=== PATIENT | female | born 1960 | race African-American/Black ===

== ENCOUNTER 2017-01-07 11:17 | Inpatient (IN) | payer MEDICAID ==
[~2017-01-07] VITALS: Ht 162.6 cm; Wt 100.4 kg
[2017-01-07] VITALS (9 sets, daily range): BP systolic 119–147; BP diastolic 69–93
[2017-01-07] MEDS ORDERED: fentaNYL PF VIAL 100 MCG/2 ML VIAL IV PRN ×3 (12:00→13:15)
[2017-01-07 12:01] LABS: NEG OBC FOB NEG; POS OBC FOB POS
--- NOTE | 2017-01-07 12:13 | EKG ---
[facility] [address] [place] [address] Test Date: 2017-01-07 Test Time: 11:53:28 Pat Name: DANIA UMANA Department: Room: Gender: F Teacher'S Assistant: : 1960 Requested By: CONCHA WOLFE Order Number: [id number] Reading MD: Measurements Intervals [place] Rate: 68 P: 29 MS: 156 QRS: -2 QRSD: 66 T: 62 QT: 400 QTc: 430 Interpretive Statements SINUS RHYTHM LEFT ATRIAL ABNORMALITY LEFTWARD AXIS LOW LIMB LEAD VOLTAGE NON SPECIFIC T ABNORMALITY RI6.01 Unconfirmed report No previous ECG available for comparison
[2017-01-07 12:22] LABS: BASO % 1 % (0-3); EOS % 2 % (0-3); HEMATOCRIT 25.8 % (36.0-47.0); HEMOGLOBIN 8.7 g/dL (12.0-15.5); LYMPH # 1.4 x10^3/uL (1.0-4.8); LYMPH % 26 % (24-48); MEAN CORPUSCULAR HEMOGLOBIN 34 pg (25-35); MEAN CORPUSCULAR HGB CONC 34 g/dL (31-37); MEAN CORPUSCULAR VOLUME 101 fL (79-100); MONO % 8 % (0-9); NEUT % 64 % (31-73); PLATELET COUNT 226 x10^3/uL (140-400); RED BLOOD COUNT 2.56 x10^6/uL (3.50-5.40); RED CELL DISTRIBUTION WIDTH 12.8 % (11.5-14.5); WHITE BLOOD COUNT 5.3 x10^3/uL (4.0-11.0)
[2017-01-07 12:31] LABS: INR 1.2 (0.8-1.1); PROTHROMBIN TIME PATIENT 14.5 SEC (11.7-14.0)
[2017-01-07 12:35] LABS: CALCIUM 8.1 mg/dL (8.5-10.1); GFR 69.4; POTASSIUM 4.3 mmol/L (3.5-5.1)
[2017-01-07] MEDS ORDERED: ACET325T9 PO (12:40)
[2017-01-07] MEDS ORDERED: POLY17PO3 PO (12:40)
[2017-01-07] MEDS ORDERED: LISI10TA2 PO (12:42)
[2017-01-07] MEDS ORDERED: SOLI10TA2 PO (12:43)
[2017-01-07] MEDS ORDERED: HYDR25TA9 PO (12:43)
[2017-01-07] MEDS ORDERED: POLY17PO29 PO (12:44)
[2017-01-07] MEDS ORDERED: GABA-585 PO (12:44)
[2017-01-07] MEDS ORDERED: PROAIR HFA8.5 GM INH (12:44)
[2017-01-07] MEDS ORDERED: PANT40TA3 PO (12:44)
--- NOTE | 2017-01-07 12:45 | PDOC2 ---
GI CONSULT Reason For Consult: Melena HPI: HPI: 56 y/o female seen in ER after d/w Dr. Al. Reports two episodes of melena since 8:30 this morning. Associated w/ mild epigastric discomfort. No CP, SOA , or dizziness. 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 H/o GERD controlled w/ Protonix QD. No NSAID use. Denies h/o anemia; says supposed to take iron but doesn't. No h/o GI bleed. Denies n/v, diarrhea, and constipation. Doesn't recall previous EGD or colonoscopy. No liver, gallbladder, or pancreas history. Started on PPI drip. Labs still being processed; Hgb is 8.1, heme positive. Last ate at 2:30 this a.m. PMH: PMH: HTN, urinary incontinence, partial hysterectomy, bilateral knee arthroscopies, bilateral CTR FH: Family History: No pertinent hx (denies GI cancers) Social History: Smoke: No ALCOHOL: rare Drugs: None ROS: GEN: Denies fevers, chills, sweats HEENT: Denies blurred vision, sore throat CV: Denies chest pain RESP: Denies shortness of air, cough GI: Per HPI : Denies hematuria, dysuria ENDO: Denies weight changes NEURO: Denies confusion, dizziness MSK: knee pain SKIN: Denies jaundice, pruritus Vitals: Vitals: Vital Signs Date Time Temp Pulse Resp B/P (MAP) Pulse Ox O2 Delivery O2 Flow Rate FiO2 01/07/17 11:45 98.8 69 18 124/84 (97) 99 Room Air 98.8 Labs: Labs: Laboratory Tests Test 01/07/17 11:46 01/07/17 12:10 Stool Occult Blood Positive (NEG) White Blood Count 5.3 x10^3/uL (4.0-11.0) Red Blood Count 2.56 x10^6/uL (3.50-5.40) Hemoglobin 8.7 g/dL (12.0-15.5) Hematocrit 25.8 % (36.0-47.0) Mean Corpuscular Volume 101 fL (79-100) Mean Corpuscular Hemoglobin 34 pg (25-35) Mean Corpuscular Hemoglobin Concent 34 g/dL (31-37) Red Cell Distribution Width 12.8 % (11.5-14.5) Platelet Count 226 x10^3/uL (140-400) Neutrophils (%) (Auto) 64 % (31-73) Lymphocytes (%) (Auto) 26 % (24-48) Monocytes (%) (Auto) 8 % (0-9) Eosinophils (%) (Auto) 2 % (0-3) Basophils (%) (Auto) 1 % (0-3) Neutrophils # (Auto) 3.4 x10^3uL (1.8-7.7) Lymphocytes # (Auto) 1.4 x10^3/uL (1.0-4.8) Monocytes # (Auto) 0.4 x10^3/uL (0.0-1.1) Eosinophils # (Auto) 0.1 x10^3/uL (0.0-0.7) Basophils # (Auto) 0.0 x10^3/uL (0.0-0.2) Medications: Please see EMR. Imaging: Imaging: - PE: GEN: NAD HEENT: Atraumatic, PERRL LUNGS: CTAB HEART: RRR ABD: NABS, S/ND, epigastric discomfort EXTREMITY: No edema SKIN: No rashes, no jaundice NEURO/PSYCH: A & O 3 A/P: A/P: Melena -two episodes this morning Macrocytic anemia H/o Isrrael-en-Y -2010 in [place], [place] H/o GERD -controlled w/ Protonix CRC screen -no previous colonoscopy -- Agree w/ PPI drip, NPO. Await pending labs. Will review w/ Dr. Mireles re: EGD. DHARA STAFFORD Jan 07, 2017 12:45
[2017-01-07 12:48] LABS: ALBUMIN 3.1 g/dL (3.4-5.0); TOTAL BILIRUBIN 0.3 mg/dL (0.2-1.0); TOTAL PROTEIN 6.2 g/dL (6.4-8.2)
[2017-01-07] MEDS ORDERED: ONDANSETRON PF 4 MG/2 ML VIAL. IV ONE (13:00)
[2017-01-07] MEDS ORDERED: PANTOPRAZOLE IV PUSH 40 MG VIAL. IVP ONE (13:00)
[2017-01-07] MEDS ORDERED: IV NORMAL SALINE 1000ML BAG 1,000 ML IV ONE (13:00)
[2017-01-07] MEDS: PANTOPRAZOLE SODIUM IV 80 MG in IV NORMAL SALINE 100ML 100 ML IV SCH ×2 (13:04→21:00)
[2017-01-07 13:06] LABS: BILIRUBIN,URINE NEGATIVE (NEG); GLUCOSE,URINE NEGATIVE (NEG); NITRITE,URINE NEGATIVE (NEG); PROTEIN,URINE NEGATIVE (NEG-TRACE)
[2017-01-07] MEDS ORDERED: IV RINGERS,LACTATED 1000ML 1,000 ML IV SCH (13:09)
[2017-01-07] MEDS ORDERED: ONDANSETRON PF 4 MG/2 ML VIAL. IV PRN (13:15)
[2017-01-07] MEDS ORDERED: LIDOCAINE 1% PF 2 ML VIAL. ID PRN (13:15)
[2017-01-07] MEDS ORDERED: PROCHLORPERAZINE 10 MG/2 ML VIAL. IV PRN (13:15)
[2017-01-07] MEDS ORDERED: MORPHINE SULFATE 2 MG/ML DISP.SYRIN. IV PRN (13:15)
[2017-01-07] MEDS ORDERED: HYDROmorphone 2 MG/ML VIAL IV PRN (13:15)
--- NOTE | 2017-01-07 13:15 | RAD ---
Abdominal series including frontal chest radiograph and 2 views of the abdomen 01/07/2017 Indication: Bloody stools x1. Comparison study: None Findings: No pneumothorax or effusion is identified. No focal pulmonary infiltrate is seen. Heart size is normal. Bony thorax is unremarkable. No pneumoperitoneum is identified. The surgical clips are noted projecting over the abdomen. Mildly dilated loop of appears to be small bowel seen in the left mid abdomen. This is nonspecific but could represent a focal ileus in the appropriate setting. Correlate with evidence of pancreatitis or other such process. No acute osseous changes are identified. Impression: Nonspecific mildly dilated loops of small bowel in left mid abdomen. A focal ileus is not excluded. The overall bowel gas pattern is felt to be nonobstructive.
[2017-01-07 13:32] LABS: SQUAMOUS EPITHELIAL CELL,UR FEW /LPF
[2017-01-07 13:33] LABS: BACTERIA,URINE FEW /HPF (0-FEW); RBC,URINE 0 /HPF (0-2); WBC,URINE OCC /HPF (0-4)
[2017-01-07] MEDS ORDERED: PROPOFOL 40 ML IV ONE (14:16)
[2017-01-07] MEDS ORDERED: LIDOCAINE 2% PF Vial for OR 5 ML VIAL. ONE (14:16)
[2017-01-07] MEDS ORDERED: EPINEPHrine 1 MG/ML VIAL SQ ONE (14:41)
--- NOTE | 2017-01-07 14:49 | PDOC4 ---
Operative Note Operative Note EGD with bx/control of bleeding Meds Propofol per anesthesia Pre-op dx acute blood loss anemia/melena/hx gastric bypass Post-op dx s/p gastric bypass with intestinal anastomotic ulcer s/p cautery/ injection epi 6 cc Plan Npo for 48 hours/monitored bed PPI therapy serial cbcs with transfusional support to maintain Hg .8 KELSEY NOWAK MD Jan 07, 2017 14:49
[2017-01-07] MEDS ORDERED: EPINEPHrine SYRINGE 1 MG/10 ML SYRINGE ONE (14:55)
[2017-01-07] MEDS ORDERED: ALBUTEROL SULFATE 2.5 MG/3 ML NEBU. NEB PRN (16:30)
[2017-01-07] MEDS ORDERED: NON FORMULARY ITEM (Albuterol Sulfate (Proair Hfa Inhaler) 1 PUFF) INH PRN (16:30)
[2017-01-07] MEDS ORDERED: INFLUENZA VAX SCREEN BY RX. MC ONE (16:45)
[2017-01-07] MEDS ORDERED: FLU VACC QS2017-18 (36MOS+)/PF 0.5 ML SYRINGE. VAX IM ONE (16:45)
[2017-01-07] MEDS ORDERED: hydrALAZINE 20 MG/ML VIAL. IVP PRN (17:00)
--- NOTE | 2017-01-07 17:26 | HP ---
ADMIT DATE: 01/07/2017 CHIEF COMPLAINT: Melena. HISTORY OF PRESENT ILLNESS: The patient is a 56-year-old -[place] woman with past medical history of gastric bypass in 2010 for weight loss purposes. She presented to the Emergency Room with 2 episodes of large melanotic stools this morning. She relates that she never had any issues like this before, was not quite sure what it is but clearly found it to be abnormal and therefore presented. On further questioning, she relates that she had some mild epigastric discomfort, but no nausea, vomiting or true abdominal pain. She does have a history of GERD, which is controlled by Protonix daily. She denies any diarrhea or constipation. Denies any other GI issues. She was emergently taken to the endoscopy lab and a bleeding ulcer was found at the anastomotic line of her bypass. This was cauterized and injected with epinephrine with appearance of cessation of bleeding. She is now admitted to the ICU for further monitoring. PAST MEDICAL HISTORY: Hypertension, urinary incontinence. PAST SURGICAL HISTORY: She is status post partial hysterectomy as well as knee arthroscopies bilaterally. FAMILY HISTORY: Positive for hypertension. Sister with Alzheimer's. SOCIAL HISTORY: Currently is taking care of her sister. Drinks alcohol only rarely. Denies any other drugs. ALLERGIES: No known drug allergies. MEDICATIONS: MAR reconciled with home medications. REVIEW OF SYSTEMS: The patient currently feels fine. She did receive Zofran post-procedure for nausea with good results. Denies any pain or symptoms in rest of organ system review. PHYSICAL EXAMINATION: VITAL SIGNS: From today show a blood pressure of 130/91, heart rate of 69, respiratory rate at 18. She is afebrile. GENERAL: This is a 56-year-old obese -[place]ron[place] woman, alert and oriented, in no acute distress. HEENT: Shows no scleral icterus. Oral mucosa is pink and moist. NECK: Supple, without any lymphadenopathy. LUNGS: Clear. HEART: Regular rate and rhythm. ABDOMEN: Positive bowel sounds, soft, nontender. EXTREMITIES: Show no edema. LABORATORY DATA: CBC with a WBC of 5.3, hemoglobin 8.7, MCV of 101, platelets of 226. Chemistries with a BUN and creatinine of 25 and 1, normal electrolytes. LFTs within normal. Albumin at 3.1. Coags with PT of 14.5 and APTT of 31. Urine essentially benign. IMAGING STUDIES: With an acute abdominal series showing nonspecific mildly dilated loops of small bowel in the left mid abdomen. Overall, bowel gas pattern is felt to be nonobstructive. ASSESSMENT AND PLAN: The patient is a 56-year-old -[place]ron[place] woman presenting with melena, found to be secondary to an anastomotic ulcer at her gastric bypass. This now has been taken care of via EGD. She is admitted to the ICU for close monitoring. We will obtain H and H q. 6 hours. She will be transfused for hemoglobin of less than 8. Her anemia interestingly is macrocytic. I suspect that she is probably both B12 and iron deficient. We will obtain labs. She may require parenteral replacement. We will continue to monitor all her other labs. Suspect that BUN is mildly elevated secondary to protein load secondary to bleed. However, cannot exclude dehydration. She will continue on gentle IV hydration for the time being as she is n.p.o. PPI will be continued IV. For hypertension, she is typically on several oral medications. We will switch to hydralazine plus minus labetalol p.r.n. IV. BETTE YAP MD DR: UR/nts JOB#: [id number] / [id number] MANI
[2017-01-07 17:36] LABS: % SAT IRON 37 % (15-34); IRON,SERUM 91 ug/dL (50-170)
[2017-01-07 18:04] LABS: HEMATOCRIT 23.9 % (36.0-47.0); RED BLOOD COUNT 2.34 x10^6/uL (3.50-5.40); RED CELL DISTRIBUTION WIDTH 12.7 % (11.5-14.5); WHITE BLOOD COUNT 7.7 x10^3/uL (4.0-11.0)
[2017-01-07] MEDS: IV NORMAL SALINE 1000ML BAG 1,000 ML IV SCH (18:20)
--- NOTE | 2017-01-07 18:40 | ED.ADGEN ---
Past Medical History Past Medical History: GERD, Hypertension, Other Additional Past Medical Histor: urinary incontinence Past Surgical History: Hysterectomy, Tubal ligation, Other Additional Past Surgical Histo: gastric bypass, carpal tunnel, knee scope Alcohol Use: Occasionally Drug Use: None Adult General Chief Complaint Chief Complaint: BLOODY STOOL HPI HPI Patient is a 56 year old woman, history of gastric bypass surgery in 2010, history of hypertension, GERD, who presents emergency department with a complaint of dark tarry stools 2 episodes. Patient states that she began experiencing upper abdominal cramping and aching sensation, and then experienced an episode of a dark tarry red stool around 1:30 this morning, and a second episode around 7 AM. Patient states she's been came to the ED for evaluation. She denies any history of GI bleeding, states she is not previously received an EGD or a colonoscopy. No history of constipation or diarrhea, no previous GI symptoms, denies any fevers, any chills, any weakness, numbness, tingling, chest pain, shortness breath, lightheadedness dizziness or other complaints. Patient states she last ate around 10 PM last night. Denies any injuries, any swelling extremities, any easy bruising or bleeding from other locations. No urinary complaints. No recent medication changes, no recent travel or surgery. Review of Systems Review of Systems Constitutional: Denies fever or chills. [] Eyes: Denies change in visual acuity. [] HENT: Denies nasal congestion or sore throat. [] Respiratory: Denies cough or shortness of breath. [] Cardiovascular: Denies chest pain or edema. [] GI: Cramping and aching epigastric abdominal pain, no nausea, vomiting, positive for dark tarry stools 2 episodes this morning, no diarrhea. : Denies dysuria. [] Musculoskeletal: Denies back pain or joint pain. [] Integument: Denies rash. [] Neurologic: Denies headache, focal weakness or sensory changes. [] Endocrine: Denies polyuria or polydipsia. [] Lymphatic: Denies swollen glands. [] Psychiatric: Denies depression or anxiety. [] Current Medications Current Medications Current Medications Medications (Trade) Dose Ordered Sig/Philip Start Time Stop Time Status Last Admin Dose Admin Fentanyl Citrate (Fentanyl 2ml Vial) 50 mcg PRN Q5MIN PRN 01/07/17 13:15 01/07/17 17:00 DC Hydromorphone HCl (Dilaudid) 0.5 mg PRN Q10MIN PRN 01/07/17 13:15 01/07/17 17:00 DC Lidocaine HCl (Xylocaine-Mpf 1% Vial) 2 ml PRN 1X PRN 01/07/17 13:15 01/07/17 17:00 DC Morphine Sulfate 1 mg PRN Q10MIN PRN 01/07/17 13:15 01/07/17 17:00 DC Ondansetron HCl (Zofran) 4 mg PRN Q6HRS PRN 01/07/17 13:15 01/08/17 13:14 01/07/17 15:57 4 MG Pantoprazole Sodium (Protonix Vial) 40 mg 1X ONCE 01/07/17 13:00 01/07/17 13:01 DC 01/07/17 13:03 40 MG Prochlorperazine Edisylate (Compazine) 5 mg PACU PRN PRN 01/07/17 13:15 01/08/17 13:14 Ringer's Solution 1,000 ml @ 0 mls/hr Q0M 01/07/17 13:09 01/08/17 01:08 Sodium Chloride 1,000 ml @ 1,000 mls/hr 1X ONCE 01/07/17 13:00 01/07/17 13:59 DC 01/07/17 13:04 1,000 MLS/HR Physical Exam Physical Exam Constitutional: Well developed, well nourished, no acute distress, non-toxic appearance. [] HENT: Normocephalic, atraumatic, bilateral external ears normal, oropharynx moist, no oral exudates, nose normal. [] Eyes: PERRLA, EOMI, conjunctiva pale, no discharge. [] Neck: Normal range of motion, no tenderness, supple, no stridor. [] Cardiovascular:Heart rate regular rhythm, no murmur, S1, S2, no rubs or gallops. [] Lungs & Thorax: Bilateral breath sounds clear to auscultation, no wheezing, rhonchi, rales. No chest wall crepitus or tenderness. Slightly pale in appearance. [] Abdomen: Bowel sounds normal, soft, mild tenderness palpation in the epigastric region, no rebound, rigidity, no guarding, no masses, no pulsatile masses. [] Skin: Warm, dry, no erythema, no rash. [] Back: No tenderness, no CVA tenderness. [] Extremities: No tenderness, no cyanosis, no clubbing, ROM intact, no edema. Negative Homans sign.[] Neurologic: Alert and oriented X 3, normal motor function, normal sensory function, no focal deficits noted. [] Psychologic: Affect normal, judgement normal, mood normal. [] Rectal examination: Patient with liquid melanotic school noted in vault. No tenderness, no masses. Current Patient Data Vital Signs Vital Signs Date Time Temp Pulse Resp B/P (MAP) Pulse Ox O2 Delivery O2 Flow Rate FiO2 01/07/17 13:20 60 18 115/74 (88) 99 Room Air 01/07/17 11:45 98.8 98.8 Lab Values Laboratory Tests Test 01/07/17 11:46 01/07/17 12:10 01/07/17 12:55 Stool Occult Blood Positive (NEG) White Blood Count 5.3 x10^3/uL (4.0-11.0) Red Blood Count 2.56 x10^6/uL (3.50-5.40) L Hemoglobin 8.7 g/dL (12.0-15.5) L Hematocrit 25.8 % (36.0-47.0) L Mean Corpuscular Volume 101 fL (79-100) H Mean Corpuscular Hemoglobin 34 pg (25-35) Mean Corpuscular Hemoglobin Concent 34 g/dL (31-37) Red Cell Distribution Width 12.8 % (11.5-14.5) Platelet Count 226 x10^3/uL (140-400) Neutrophils (%) (Auto) 64 % (31-73) Lymphocytes (%) (Auto) 26 % (24-48) Monocytes (%) (Auto) 8 % (0-9) Eosinophils (%) (Auto) 2 % (0-3) Basophils (%) (Auto) 1 % (0-3) Neutrophils # (Auto) 3.4 x10^3uL (1.8-7.7) Lymphocytes # (Auto) 1.4 x10^3/uL (1.0-4.8) Monocytes # (Auto) 0.4 x10^3/uL (0.0-1.1) Eosinophils # (Auto) 0.1 x10^3/uL (0.0-0.7) Basophils # (Auto) 0.0 x10^3/uL (0.0-0.2) Reticulocyte Count (auto) 1.4 % (0.5-2.5) Prothrombin Time 14.5 SEC (11.7-14.0) H Prothrombin Time INR 1.2 (0.8-1.1) H PTT 31 SEC (24-38) Sodium Level 142 mmol/L (136-145) Potassium Level 4.3 mmol/L (3.5-5.1) Chloride Level 107 mmol/L (98-107) Carbon Dioxide Level 28 mmol/L (21-32) Anion Gap 7 (6-14) Blood Urea Nitrogen 25 mg/dL (7-20) H Creatinine 1.0 mg/dL (0.6-1.0) Estimated GFR (Cockcroft-Gault) 69.4 BUN/Creatinine Ratio 25 (6-20) H Glucose Level 85 mg/dL (70-99) Lactic Acid Level 0.5 mmol/L (0.4-2.0) Calcium Level 8.1 mg/dL (8.5-10.1) L Iron Level 91 ug/dL (50-170) Total Iron Binding Capacity 248 ug/dL (250-450) L Iron Saturation 37 % (15-34) H Ferritin 40 ng/mL (8-252) Total Bilirubin 0.3 mg/dL (0.2-1.0) Aspartate Amino Transferase (AST) 20 U/L (15-37) Alanine Aminotransferase (ALT) 27 U/L (14-59) Alkaline Phosphatase 49 U/L (46-116) Troponin I Quantitative < 0.017 ng/mL (0.000-0.055) Total Protein 6.2 g/dL (6.4-8.2) L Albumin 3.1 g/dL (3.4-5.0) L Albumin/Globulin Ratio 1.0 (1.0-1.7) Urine Collection Type Unknown Urine Color Yellow Urine Clarity Clear Urine pH 7.0 Urine Specific [place] 1.015 Urine Protein Negative mg/dL (NEG-TRACE) Urine Glucose (UA) Negative mg/dL (NEG) Urine Ketones (Stick) Negative mg/dL (NEG) Urine Blood Negative (NEG) Urine Nitrite Negative (NEG) Urine Bilirubin Negative (NEG) Urine Urobilinogen Dipstick 1.0 mg/dL (0.2 mg/dL) Urine Leukocyte Esterase Trace (NEG) Urine RBC 0 /HPF (0-2) Urine WBC Occ /HPF (0-4) Urine Squamous Epithelial Cells Few /LPF Urine Bacteria Few /HPF (0-FEW) Laboratory Tests 01/07/17 12:10 Laboratory Tests 01/07/17 12:10 EKG EKG EC: Sinus rhythm, heart rate 68 beats are minute, left axis deviation, QTC of 4:30, WI of 156, QRS of 66, mild baseline artifact, no ST elevations or depressions, T-wave flattening noted in the anterior septal leads, abnormal ECG , does not meet STEMI criteria. As interpreted by me. Radiology/Procedures Radiology/Procedures [][facility] [address] [place] [address] IMAGING REPORT Signed PATIENT: DANIA UMANA ACCOUNT: [id number] : 1960 LOCATION: ER AGE: 56 SEX: F EXAM STATUS: REG ER ORD. PHYSICIAN: CONCHA WOLFE DO REASON: abd pain PROCEDURE: ACUTE ABDOMEN SERIES Abdominal series including frontal chest radiograph and 2 views of the abdomen 01/07/2017 Indication: Bloody stools x1. Comparison study: None Findings: No pneumothorax or effusion is identified. No focal pulmonary infiltrate is seen. Heart size is normal. Bony thorax is unremarkable. No pneumoperitoneum is identified. The surgical clips are noted projecting over the abdomen. Mildly dilated loop of appears to be small bowel seen in the left mid abdomen. This is nonspecific but could represent a focal ileus in the appropriate setting. Correlate with evidence of pancreatitis or other such process. No acute osseous changes are identified. Impression: Nonspecific mildly dilated loops of small bowel in left mid abdomen. A focal ileus is not excluded. The overall bowel gas pattern is felt to be nonobstructive. DICTATED and SIGNED BY: SHAY MCKEON MD DATE: 01/07/17 [id number] CC: CONCHA WOLFE DO; NON,STAFF ~ Course & Med Decision Making Course & Med Decision Making Pertinent Labs and Imaging studies reviewed. (See chart for details) Patient with no further episodes of tarry stool in the ED, vital signs within normal limits, patient resting comfortably after receiving analgesia. I spoke with Dr. Mireles of GI, this time we'll hold off on additional imaging aside from acute abdominal series, proceed with IV Protonix bolus and drip, patient to receive emergent EGD, patient was evaluated in the ED by nurse practitioner Lori Vogt of GI, patient states that she is feeling better at this time, however hemoglobin noted to be 8.7, history of anemia, consistent with acute blood loss, based on patient's examination findings a concern for continued bleeding, along with elevated blood urea nitrogen of 25, consistent with upper GI bleed as stated, patient was consented for transfusion of 1 unit packed red cells at this time, with a unit of red cells on hold. Patient also received ceftriaxone due to concern for upper GI bleed. No history of liver abnormalities , LFTs within normal limits. Findings as above discussed with Dr. Moreira of internal medicine, patient accepted to her service as a full admission, at this time to the medical telemetry floor, as patient remains stable in the ED, awaiting transfer to the GI suite for EGD performed. Patient was transferred to the GI suite without issue for continued management with GI. Eboni Disclaimer Dragon Disclaimer This electronic medical record was generated, in whole or in part, using a voice recognition dictation system. Departure Impression: Primary Impression: UGI bleed Additional Impression: Anemia Disposition: ADMITTED INPATIENT Admitting Physician: Other Condition: STABLE Critical Care Time Critical care time was 25 minutes exclusive of procedures. Problem Qualifiers CONCHA WOLFE DO Jan 07, 2017 18:40
[2017-01-08] VITALS (18 sets, daily range): BP systolic 106–157; BP diastolic 60–90
[2017-01-08 01:17] LABS: HEMATOCRIT 23.1 % (36.0-47.0); HEMOGLOBIN 7.7 g/dL (12.0-15.5); RED BLOOD COUNT 2.27 x10^6/uL (3.50-5.40); RED CELL DISTRIBUTION WIDTH 12.5 % (11.5-14.5); WHITE BLOOD COUNT 5.7 x10^3/uL (4.0-11.0)
[2017-01-08 04:32] LABS: BASO % 1 % (0-3); EOS % 2 % (0-3); HEMATOCRIT 24.1 % (36.0-47.0); HEMOGLOBIN 8.1 g/dL (12.0-15.5); LYMPH # 1.9 x10^3/uL (1.0-4.8); LYMPH % 34 % (24-48); MEAN CORPUSCULAR HEMOGLOBIN 34 pg (25-35); MEAN CORPUSCULAR HGB CONC 34 g/dL (31-37); MEAN CORPUSCULAR VOLUME 99 fL (79-100); MONO % 8 % (0-9); NEUT % 56 % (31-73); PLATELET COUNT 187 x10^3/uL (140-400); RED BLOOD COUNT 2.42 x10^6/uL (3.50-5.40); WHITE BLOOD COUNT 5.7 x10^3/uL (4.0-11.0)
[2017-01-08 04:58] LABS: ALBUMIN 2.6 g/dL (3.4-5.0); ALBUMIN/GLOBULIN RATIO 0.9 (1.0-1.7); CALCIUM 8.3 mg/dL (8.5-10.1); CREATININE 0.8 mg/dL (0.6-1.0); GFR 89.8; POTASSIUM 3.8 mmol/L (3.5-5.1); TOTAL BILIRUBIN 0.5 mg/dL (0.2-1.0); TOTAL PROTEIN 5.6 g/dL (6.4-8.2)
[2017-01-08] MEDS: IV NORMAL SALINE 1000ML BAG 1,000 ML IV SCH ×3 (04:59→21:52)
[2017-01-08] MEDS: PANTOPRAZOLE SODIUM IV 80 MG in IV NORMAL SALINE 100ML 100 ML IV SCH ×2 (09:07→21:52)
--- NOTE | 2017-01-08 09:31 | PDOC ---
Subjective: Subjective: No recurrent bleeding, pain, or n/v. Objective: Objective: Received 1 unit pRBCs. D/w RN. Vital Signs: Vital Signs Date Time Temp Pulse Resp B/P (MAP) Pulse Ox O2 Delivery O2 Flow Rate FiO2 01/08/17 09:00 71 14 123/67 (85) 96 Room Air 01/08/17 08:00 98.0 98.0 01/07/17 14:52 2 Labs: Laboratory Tests Test 01/07/17 11:46 01/07/17 12:10 01/07/17 12:55 01/07/17 17:50 Stool Occult Blood Positive White Blood Count 5.3 x10^3/uL 7.7 x10^3/uL Red Blood Count 2.56 x10^6/uL 2.34 x10^6/uL Hemoglobin 8.7 g/dL 8.0 g/dL Hematocrit 25.8 % 23.9 % Mean Corpuscular Volume 101 fL 102 fL Mean Corpuscular Hemoglobin 34 pg 34 pg Mean Corpuscular Hemoglobin Concent 34 g/dL 33 g/dL Red Cell Distribution Width 12.8 % 12.7 % Platelet Count 226 x10^3/uL 197 x10^3/uL Neutrophils (%) (Auto) 64 % Lymphocytes (%) (Auto) 26 % Monocytes (%) (Auto) 8 % Eosinophils (%) (Auto) 2 % Basophils (%) (Auto) 1 % Neutrophils # (Auto) 3.4 x10^3uL Lymphocytes # (Auto) 1.4 x10^3/uL Monocytes # (Auto) 0.4 x10^3/uL Eosinophils # (Auto) 0.1 x10^3/uL Basophils # (Auto) 0.0 x10^3/uL Reticulocyte Count (auto) 1.4 % Prothrombin Time 14.5 SEC Prothromb Time International Ratio 1.2 Activated Partial Thromboplast Time 31 SEC Sodium Level 142 mmol/L Potassium Level 4.3 mmol/L Chloride Level 107 mmol/L Carbon Dioxide Level 28 mmol/L Anion Gap 7 Blood Urea Nitrogen 25 mg/dL Creatinine 1.0 mg/dL Estimated GFR (Cockcroft-Gault) 69.4 BUN/Creatinine Ratio 25 Glucose Level 85 mg/dL Lactic Acid Level 0.5 mmol/L Calcium Level 8.1 mg/dL Iron Level 91 ug/dL Total Iron Binding Capacity 248 ug/dL Iron Saturation 37 % Ferritin 40 ng/mL Total Bilirubin 0.3 mg/dL Aspartate Amino Transf (AST/SGOT) 20 U/L Alanine Aminotransferase (ALT/SGPT) 27 U/L Alkaline Phosphatase 49 U/L Troponin I Quantitative < 0.017 ng/mL Total Protein 6.2 g/dL Albumin 3.1 g/dL Albumin/Globulin Ratio 1.0 Urine Collection Type Unknown Urine Color Yellow Urine Clarity Clear Urine pH 7.0 Urine Specific [place] 1.015 Urine Protein Negative mg/dL Urine Glucose (UA) Negative mg/dL Urine Ketones (Stick) Negative mg/dL Urine Blood Negative Urine Nitrite Negative Urine Bilirubin Negative Urine Urobilinogen Dipstick 1.0 mg/dL Urine Leukocyte Esterase Trace Urine RBC 0 /HPF Urine WBC Occ /HPF Urine Squamous Epithelial Cells Few /LPF Urine Bacteria Few /HPF Test 01/08/17 00:30 01/08/17 04:00 White Blood Count 5.7 x10^3/uL 5.7 x10^3/uL Red Blood Count 2.27 x10^6/uL 2.42 x10^6/uL Hemoglobin 7.7 g/dL 8.1 g/dL Hematocrit 23.1 % 24.1 % Mean Corpuscular Volume 102 fL 99 fL Mean Corpuscular Hemoglobin 34 pg 34 pg Mean Corpuscular Hemoglobin Concent 33 g/dL 34 g/dL Red Cell Distribution Width 12.5 % 14.0 % Platelet Count 192 x10^3/uL 187 x10^3/uL Neutrophils (%) (Auto) 56 % Lymphocytes (%) (Auto) 34 % Monocytes (%) (Auto) 8 % Eosinophils (%) (Auto) 2 % Basophils (%) (Auto) 1 % Neutrophils # (Auto) 3.2 x10^3uL Lymphocytes # (Auto) 1.9 x10^3/uL Monocytes # (Auto) 0.4 x10^3/uL Eosinophils # (Auto) 0.1 x10^3/uL Basophils # (Auto) 0.0 x10^3/uL Sodium Level 142 mmol/L Potassium Level 3.8 mmol/L Chloride Level 109 mmol/L Carbon Dioxide Level 25 mmol/L Anion Gap 8 Blood Urea Nitrogen 18 mg/dL Creatinine 0.8 mg/dL Estimated GFR (Cockcroft-Gault) 89.8 BUN/Creatinine Ratio 23 Glucose Level 85 mg/dL Calcium Level 8.3 mg/dL Total Bilirubin 0.5 mg/dL Aspartate Amino Transf (AST/SGOT) 20 U/L Alanine Aminotransferase (ALT/SGPT) 24 U/L Alkaline Phosphatase 45 U/L Total Protein 5.6 g/dL Albumin 2.6 g/dL Albumin/Globulin Ratio 0.9 Imaging: EGD 01/07/17 s/p gastric bypass with intestinal anastomotic ulcer s/p cautery/injection epi 6 cc PE: GEN: NAD LUNGS: CTAB HEART: RRR ABD: S/ND/NT NEURO/PSYCH: A & O 3 A/P: S/p gastric bypass w/ anastomotic ulcer s/p endotherapy 01/07/17 Melena - no recurrence Macrocytic anemia - Hgb 8.1, s/p 1 unit pRBCs, B12 in process -- No recurrent bleeding. Continue NPO and PPI drip. DHARA STAFFORD Jan 08, 2017 09:31
[2017-01-08 09:42] LABS: FOLATE 9.72 ng/ml (3.2-20.0)
--- NOTE | 2017-01-08 11:28 | PDOC ---
PROGRESS NOTES Chief Complaint Chief Complaint Melena ASSESSMENT AND PLAN: 1. Gastric ulcer: s/p EGD 01/07 with intestinal anastomotic ulcer s/p cautery/ epi injection. no sign of ongoing bleed. cont IV PPI. NPO for now, start PO as per GI. 2. Anemia: multifactorial, incl GIB (now stable post PRBC x1); inflammation, iron deficiency. infuse IV iron x1, cont PO iron on O/P basis. monitor closely. 3. Macrocytosis: not B12/folate related. monitor over time 4. HTN: well controlled on current regimen (IV PRN) 5. Protein malnutrition: moderate; poss exacerbated by inflammatory response 6. Dispo: ok to transfer to med floor . History of Present Illness History of Present Illness no abd pain, no nausea. hungry Vitals Vitals Vital Signs Date Time Temp Pulse Resp B/P (MAP) Pulse Ox O2 Delivery O2 Flow Rate FiO2 01/08/17 11:04 98.2 70 14 123/68 (86) 100 Room Air 98.2 01/07/17 14:52 2 Physical Exam General: Alert, Oriented X3, Cooperative, No acute distress Heart: Regular rate Lungs: Clear Abdomen: Normal bowel sounds, Soft, No tenderness Extremities: No edema Skin: No rashes Labs LABS Laboratory Tests Test 01/07/17 11:46 01/07/17 12:10 01/07/17 12:55 01/07/17 17:50 Stool Occult Blood Positive (NEG) White Blood Count 5.3 x10^3/uL (4.0-11.0) 7.7 x10^3/uL (4.0-11.0) Red Blood Count 2.56 x10^6/uL (3.50-5.40) 2.34 x10^6/uL (3.50-5.40) Hemoglobin 8.7 g/dL (12.0-15.5) 8.0 g/dL (12.0-15.5) Hematocrit 25.8 % (36.0-47.0) 23.9 % (36.0-47.0) Mean Corpuscular Volume 101 fL (79-100) 102 fL (79-100) Mean Corpuscular Hemoglobin 34 pg (25-35) 34 pg (25-35) Mean Corpuscular Hemoglobin Concent 34 g/dL (31-37) 33 g/dL (31-37) Red Cell Distribution Width 12.8 % (11.5-14.5) 12.7 % (11.5-14.5) Platelet Count 226 x10^3/uL (140-400) 197 x10^3/uL (140-400) Neutrophils (%) (Auto) 64 % (31-73) Lymphocytes (%) (Auto) 26 % (24-48) Monocytes (%) (Auto) 8 % (0-9) Eosinophils (%) (Auto) 2 % (0-3) Basophils (%) (Auto) 1 % (0-3) Neutrophils # (Auto) 3.4 x10^3uL (1.8-7.7) Lymphocytes # (Auto) 1.4 x10^3/uL (1.0-4.8) Monocytes # (Auto) 0.4 x10^3/uL (0.0-1.1) Eosinophils # (Auto) 0.1 x10^3/uL (0.0-0.7) Basophils # (Auto) 0.0 x10^3/uL (0.0-0.2) Reticulocyte Count (auto) 1.4 % (0.5-2.5) Prothrombin Time 14.5 SEC (11.7-14.0) Prothromb Time International Ratio 1.2 (0.8-1.1) Activated Partial Thromboplast Time 31 SEC (24-38) Sodium Level 142 mmol/L (136-145) Potassium Level 4.3 mmol/L (3.5-5.1) Chloride Level 107 mmol/L (98-107) Carbon Dioxide Level 28 mmol/L (21-32) Anion Gap 7 (6-14) Blood Urea Nitrogen 25 mg/dL (7-20) Creatinine 1.0 mg/dL (0.6-1.0) Estimated GFR (Cockcroft-Gault) 69.4 BUN/Creatinine Ratio 25 (6-20) Glucose Level 85 mg/dL (70-99) Lactic Acid Level 0.5 mmol/L (0.4-2.0) Calcium Level 8.1 mg/dL (8.5-10.1) Iron Level 91 ug/dL (50-170) Total Iron Binding Capacity 248 ug/dL (250-450) Iron Saturation 37 % (15-34) Ferritin 40 ng/mL (8-252) Total Bilirubin 0.3 mg/dL (0.2-1.0) Aspartate Amino Transf (AST/SGOT) 20 U/L (15-37) Alanine Aminotransferase (ALT/SGPT) 27 U/L (14-59) Alkaline Phosphatase 49 U/L (46-116) Troponin I Quantitative < 0.017 ng/mL (0.000-0.055) Total Protein 6.2 g/dL (6.4-8.2) Albumin 3.1 g/dL (3.4-5.0) Albumin/Globulin Ratio 1.0 (1.0-1.7) Vitamin B12 Level 449 pg/mL (247-911) Serum Folate 9.72 ng/ml (3.2-20.0) Urine Collection Type Unknown Urine Color Yellow Urine Clarity Clear Urine pH 7.0 Urine Specific [place] 1.015 Urine Protein Negative mg/dL (NEG-TRACE) Urine Glucose (UA) Negative mg/dL (NEG) Urine Ketones (Stick) Negative mg/dL (NEG) Urine Blood Negative (NEG) Urine Nitrite Negative (NEG) Urine Bilirubin Negative (NEG) Urine Urobilinogen Dipstick 1.0 mg/dL (0.2 mg/dL) Urine Leukocyte Esterase Trace (NEG) Urine RBC 0 /HPF (0-2) Urine WBC Occ /HPF (0-4) Urine Squamous Epithelial Cells Few /LPF Urine Bacteria Few /HPF (0-FEW) Test 01/08/17 00:30 01/08/17 04:00 White Blood Count 5.7 x10^3/uL (4.0-11.0) 5.7 x10^3/uL (4.0-11.0) Red Blood Count 2.27 x10^6/uL (3.50-5.40) 2.42 x10^6/uL (3.50-5.40) Hemoglobin 7.7 g/dL (12.0-15.5) 8.1 g/dL (12.0-15.5) Hematocrit 23.1 % (36.0-47.0) 24.1 % (36.0-47.0) Mean Corpuscular Volume 102 fL (79-100) 99 fL (79-100) Mean Corpuscular Hemoglobin 34 pg (25-35) 34 pg (25-35) Mean Corpuscular Hemoglobin Concent 33 g/dL (31-37) 34 g/dL (31-37) Red Cell Distribution Width 12.5 % (11.5-14.5) 14.0 % (11.5-14.5) Platelet Count 192 x10^3/uL (140-400) 187 x10^3/uL (140-400) Neutrophils (%) (Auto) 56 % (31-73) Lymphocytes (%) (Auto) 34 % (24-48) Monocytes (%) (Auto) 8 % (0-9) Eosinophils (%) (Auto) 2 % (0-3) Basophils (%) (Auto) 1 % (0-3) Neutrophils # (Auto) 3.2 x10^3uL (1.8-7.7) Lymphocytes # (Auto) 1.9 x10^3/uL (1.0-4.8) Monocytes # (Auto) 0.4 x10^3/uL (0.0-1.1) Eosinophils # (Auto) 0.1 x10^3/uL (0.0-0.7) Basophils # (Auto) 0.0 x10^3/uL (0.0-0.2) Sodium Level 142 mmol/L (136-145) Potassium Level 3.8 mmol/L (3.5-5.1) Chloride Level 109 mmol/L (98-107) Carbon Dioxide Level 25 mmol/L (21-32) Anion Gap 8 (6-14) Blood Urea Nitrogen 18 mg/dL (7-20) Creatinine 0.8 mg/dL (0.6-1.0) Estimated GFR (Cockcroft-Gault) 89.8 BUN/Creatinine Ratio 23 (6-20) Glucose Level 85 mg/dL (70-99) Calcium Level 8.3 mg/dL (8.5-10.1) Total Bilirubin 0.5 mg/dL (0.2-1.0) Aspartate Amino Transf (AST/SGOT) 20 U/L (15-37) Alanine Aminotransferase (ALT/SGPT) 24 U/L (14-59) Alkaline Phosphatase 45 U/L (46-116) Total Protein 5.6 g/dL (6.4-8.2) Albumin 2.6 g/dL (3.4-5.0) Albumin/Globulin Ratio 0.9 (1.0-1.7) BETTE YAP MD Jan 08, 2017 11:28
[2017-01-08] MEDS ORDERED: IRON SUCROSE COMPLEX 500 MG in IV NORMAL SALINE 250ML 250 ML IV ONE (11:30)
--- NOTE | 2017-01-08 13:46 | PATHOLOGY ---
PATHOLOGY REPORT * * * * * * * * FINAL DIAGNOSIS: Gastric biopsies: - Superficial congestion and mild chronic inflammation. COMMENT: Sections of the gastric biopsy reveal segments of gastric body mucosa showing superficial congestion and mild chronic inflammation. An immunoperoxidase stain for Helicobacter is obtained. No Helicobacter organisms are identified. There is no evidence of malignancy. (JPM:mgr; 01/08/2017) Special Stain Performed: Immunoperoxidase stain for Helicobacter (A1) REPORT ELECTRONICALLY SIGNED BY: Bulmaro Chandler M.D. DATE/TIME: 01/08/2017 13:45 * * * * * * * * GROSS PATHOLOGY: Received in formalin labeled "Joesph Jameson, gastric BX's r/o H. pylori," is a segment of joyce soft tissue measuring 0.4 cm in maximum dimension. The specimen is submitted entirely in cassette A1. (TSD; 01/07/2017) INITIAL CPT CODE(S): A; 78825, 43711 Professional services performed [place] [address] Technical services performed by [facility] at [address] [place] [address]. SPECIMEN(S) RECEIVED: A.Gastric biopsies, r/o H. Pylori CLINICAL HISTORY: GI bleed PATIENT: JOESPH JAMESON /AGE: 11 1960 (Age: 56) PATIENT #: [id number] ALT CASE #: SPECIMEN COLLECTION DATE: 01/07/2017 SPECIMEN RECEIVED DATE: 01/07/2017 [facility] - [address] [place] [address] - PHONE: [phone] * * * END OF REPORT * * *
[2017-01-08 14:25] LABS: HEMOGLOBIN 9.6 g/dL (12.0-15.5); RED BLOOD COUNT 2.91 x10^6/uL (3.50-5.40); RED CELL DISTRIBUTION WIDTH 14.6 % (11.5-14.5); WHITE BLOOD COUNT 5.7 x10^3/uL (4.0-11.0)
[2017-01-09 03:00] VITALS: BP 135/68
[2017-01-09 03:49] LABS: BASO % 0 % (0-3); EOS % 1 % (0-3); HEMATOCRIT 25.7 % (36.0-47.0); HEMOGLOBIN 8.7 g/dL (12.0-15.5); LYMPH # 1.1 x10^3/uL (1.0-4.8); LYMPH % 17 % (24-48); MEAN CORPUSCULAR HEMOGLOBIN 34 pg (25-35); MEAN CORPUSCULAR HGB CONC 34 g/dL (31-37); MEAN CORPUSCULAR VOLUME 99 fL (79-100); MONO % 7 % (0-9); NEUT % 75 % (31-73); PLATELET COUNT 191 x10^3/uL (140-400); RED BLOOD COUNT 2.58 x10^6/uL (3.50-5.40); RED CELL DISTRIBUTION WIDTH 14.2 % (11.5-14.5); WHITE BLOOD COUNT 6.4 x10^3/uL (4.0-11.0)
[2017-01-09 05:25] LABS: ALBUMIN 2.8 g/dL (3.4-5.0); ALBUMIN/GLOBULIN RATIO 0.9 (1.0-1.7); CALCIUM 8.6 mg/dL (8.5-10.1); CREATININE 0.8 mg/dL (0.6-1.0); GFR 89.8; POTASSIUM 3.7 mmol/L (3.5-5.1); TOTAL BILIRUBIN 0.5 mg/dL (0.2-1.0); TOTAL PROTEIN 5.8 g/dL (6.4-8.2)
[2017-01-09] MEDS: PANTOPRAZOLE SODIUM IV 80 MG in IV NORMAL SALINE 100ML 100 ML IV SCH (06:30)
[2017-01-09] MEDS: IV NORMAL SALINE 1000ML BAG 1,000 ML IV SCH ×2 (06:33→17:34)
[2017-01-09 06:50] VITALS: BP 141/73
[2017-01-09 10:37] VITALS: BP 150/87
--- NOTE | 2017-01-09 10:55 | PDOC ---
PROGRESS NOTES Chief Complaint Chief Complaint Melena acute blood loss anemia and upper GI bleed ASSESSMENT AND PLAN: 1. Gastric ulcer: s/p EGD 01/07 with intestinal anastomotic ulcer s/p cautery/ epi injection. no sign of ongoing bleed. cont IV PPI. clears this AM, advance to full liquid 2. Anemia: multifactorial, incl GIB (now stable post PRBC x1); inflammation, iron deficiency. s/p IV iron x1, cont PO iron started PO B12 complex 3. Macrocytosis: not B12/folate related. 4. HTN: well controlled on current regimen (IV PRN) 5. Protein malnutrition: moderate; poss exacerbated by inflammatory response 6. Dispo may DC in AM if hgb maintain stable . History of Present Illness History of Present Illness no abd pain, no nausea. hungry Vitals Vitals Vital Signs Date Time Temp Pulse Resp B/P (MAP) Pulse Ox O2 Delivery O2 Flow Rate FiO2 01/09/17 10:37 98.0 71 17 150/87 (108) 99 Room Air 98.0 01/09/17 09:22 2.0 Physical Exam General: Alert, Oriented X3, Cooperative, No acute distress Heart: Regular rate Lungs: Clear Abdomen: Normal bowel sounds, Soft, No tenderness Extremities: No edema Skin: No rashes Labs LABS Laboratory Tests Test 01/08/17 14:05 01/09/17 03:00 White Blood Count 5.7 x10^3/uL (4.0-11.0) 6.4 x10^3/uL (4.0-11.0) Red Blood Count 2.91 x10^6/uL (3.50-5.40) 2.58 x10^6/uL (3.50-5.40) Hemoglobin 9.6 g/dL (12.0-15.5) 8.7 g/dL (12.0-15.5) Hematocrit 29.0 % (36.0-47.0) 25.7 % (36.0-47.0) Mean Corpuscular Volume 100 fL (79-100) 99 fL (79-100) Mean Corpuscular Hemoglobin 33 pg (25-35) 34 pg (25-35) Mean Corpuscular Hemoglobin Concent 33 g/dL (31-37) 34 g/dL (31-37) Red Cell Distribution Width 14.6 % (11.5-14.5) 14.2 % (11.5-14.5) Platelet Count 201 x10^3/uL (140-400) 191 x10^3/uL (140-400) Neutrophils (%) (Auto) 75 % (31-73) Lymphocytes (%) (Auto) 17 % (24-48) Monocytes (%) (Auto) 7 % (0-9) Eosinophils (%) (Auto) 1 % (0-3) Basophils (%) (Auto) 0 % (0-3) Neutrophils # (Auto) 4.8 x10^3uL (1.8-7.7) Lymphocytes # (Auto) 1.1 x10^3/uL (1.0-4.8) Monocytes # (Auto) 0.5 x10^3/uL (0.0-1.1) Eosinophils # (Auto) 0.1 x10^3/uL (0.0-0.7) Basophils # (Auto) 0.0 x10^3/uL (0.0-0.2) Sodium Level 141 mmol/L (136-145) Potassium Level 3.7 mmol/L (3.5-5.1) Chloride Level 108 mmol/L (98-107) Carbon Dioxide Level 26 mmol/L (21-32) Anion Gap 7 (6-14) Blood Urea Nitrogen 12 mg/dL (7-20) Creatinine 0.8 mg/dL (0.6-1.0) Estimated GFR (Cockcroft-Gault) 89.8 BUN/Creatinine Ratio 15 (6-20) Glucose Level 83 mg/dL (70-99) Calcium Level 8.6 mg/dL (8.5-10.1) Total Bilirubin 0.5 mg/dL (0.2-1.0) Aspartate Amino Transf (AST/SGOT) 21 U/L (15-37) Alanine Aminotransferase (ALT/SGPT) 33 U/L (14-59) Alkaline Phosphatase 44 U/L (46-116) Total Protein 5.8 g/dL (6.4-8.2) Albumin 2.8 g/dL (3.4-5.0) Albumin/Globulin Ratio 0.9 (1.0-1.7) Review of Systems Review of Systems no n.vd. Assessment and Plan Assessmemt and Plan Problems Medical Problems: (1) Anemia Status: Acute Problems: Comment Review of Relevant I have reviewed the following items ana (where applicable) has been applied. Labs Laboratory Tests Test 01/07/17 11:46 01/07/17 12:10 01/07/17 12:55 01/07/17 15:43 Stool Occult Blood Positive (NEG) White Blood Count 5.3 x10^3/uL (4.0-11.0) Red Blood Count 2.56 x10^6/uL (3.50-5.40) Hemoglobin 8.7 g/dL (12.0-15.5) Hematocrit 25.8 % (36.0-47.0) Mean Corpuscular Volume 101 fL (79-100) Mean Corpuscular Hemoglobin 34 pg (25-35) Mean Corpuscular Hemoglobin Concent 34 g/dL (31-37) Red Cell Distribution Width 12.8 % (11.5-14.5) Platelet Count 226 x10^3/uL (140-400) Neutrophils (%) (Auto) 64 % (31-73) Lymphocytes (%) (Auto) 26 % (24-48) Monocytes (%) (Auto) 8 % (0-9) Eosinophils (%) (Auto) 2 % (0-3) Basophils (%) (Auto) 1 % (0-3) Neutrophils # (Auto) 3.4 x10^3uL (1.8-7.7) Lymphocytes # (Auto) 1.4 x10^3/uL (1.0-4.8) Monocytes # (Auto) 0.4 x10^3/uL (0.0-1.1) Eosinophils # (Auto) 0.1 x10^3/uL (0.0-0.7) Basophils # (Auto) 0.0 x10^3/uL (0.0-0.2) Reticulocyte Count (auto) 1.4 % (0.5-2.5) Prothrombin Time 14.5 SEC (11.7-14.0) Prothromb Time International Ratio 1.2 (0.8-1.1) Activated Partial Thromboplast Time 31 SEC (24-38) Sodium Level 142 mmol/L (136-145) Potassium Level 4.3 mmol/L (3.5-5.1) Chloride Level 107 mmol/L (98-107) Carbon Dioxide Level 28 mmol/L (21-32) Anion Gap 7 (6-14) Blood Urea Nitrogen 25 mg/dL (7-20) Creatinine 1.0 mg/dL (0.6-1.0) Estimated GFR (Cockcroft-Gault) 69.4 BUN/Creatinine Ratio 25 (6-20) Glucose Level 85 mg/dL (70-99) Lactic Acid Level 0.5 mmol/L (0.4-2.0) Calcium Level 8.1 mg/dL (8.5-10.1) Iron Level 91 ug/dL (50-170) Total Iron Binding Capacity 248 ug/dL (250-450) Iron Saturation 37 % (15-34) Ferritin 40 ng/mL (8-252) Total Bilirubin 0.3 mg/dL (0.2-1.0) Aspartate Amino Transf (AST/SGOT) 20 U/L (15-37) Alanine Aminotransferase (ALT/SGPT) 27 U/L (14-59) Alkaline Phosphatase 49 U/L (46-116) Troponin I Quantitative < 0.017 ng/mL (0.000-0.055) Total Protein 6.2 g/dL (6.4-8.2) Albumin 3.1 g/dL (3.4-5.0) Albumin/Globulin Ratio 1.0 (1.0-1.7) Vitamin B12 Level 449 pg/mL (247-911) Serum Folate 9.72 ng/ml (3.2-20.0) Urine Collection Type Unknown Urine Color Yellow Urine Clarity Clear Urine pH 7.0 Urine Specific [place] 1.015 Urine Protein Negative mg/dL (NEG-TRACE) Urine Glucose (UA) Negative mg/dL (NEG) Urine Ketones (Stick) Negative mg/dL (NEG) Urine Blood Negative (NEG) Urine Nitrite Negative (NEG) Urine Bilirubin Negative (NEG) Urine Urobilinogen Dipstick 1.0 mg/dL (0.2 mg/dL) Urine Leukocyte Esterase Trace (NEG) Urine RBC 0 /HPF (0-2) Urine WBC Occ /HPF (0-4) Urine Squamous Epithelial Cells Few /LPF Urine Bacteria Few /HPF (0-FEW) Nasal Screen MRSA (PCR) Negative (Negative) Test 01/07/17 17:50 01/08/17 00:30 01/08/17 04:00 01/08/17 14:05 White Blood Count 7.7 x10^3/uL (4.0-11.0) 5.7 x10^3/uL (4.0-11.0) 5.7 x10^3/uL (4.0-11.0) 5.7 x10^3/uL (4.0-11.0) Red Blood Count 2.34 x10^6/uL (3.50-5.40) 2.27 x10^6/uL (3.50-5.40) 2.42 x10^6/uL (3.50-5.40) 2.91 x10^6/uL (3.50-5.40) Hemoglobin 8.0 g/dL (12.0-15.5) 7.7 g/dL (12.0-15.5) 8.1 g/dL (12.0-15.5) 9.6 g/dL (12.0-15.5) Hematocrit 23.9 % (36.0-47.0) 23.1 % (36.0-47.0) 24.1 % (36.0-47.0) 29.0 % (36.0-47.0) Mean Corpuscular Volume 102 fL (79-100) 102 fL (79-100) 99 fL (79-100) 100 fL (79-100) Mean Corpuscular Hemoglobin 34 pg (25-35) 34 pg (25-35) 34 pg (25-35) 33 pg ( 25-35) Mean Corpuscular Hemoglobin Concent 33 g/dL (31-37) 33 g/dL (31-37) 34 g/dL (31-37) 33 g/dL (31-37) Red Cell Distribution Width 12.7 % (11.5-14.5) 12.5 % (11.5-14.5) 14.0 % (11.5-14.5) 14.6 % (11.5-14.5) Platelet Count 197 x10^3/uL (140-400) 192 x10^3/uL (140-400) 187 x10^3/uL (140-400) 201 x10^3/uL (140-400) Neutrophils (%) (Auto) 56 % (31-73) Lymphocytes (%) (Auto) 34 % (24-48) Monocytes (%) (Auto) 8 % (0-9) Eosinophils (%) (Auto) 2 % (0-3) Basophils (%) (Auto) 1 % (0-3) Neutrophils # (Auto) 3.2 x10^3uL (1.8-7.7) Lymphocytes # (Auto) 1.9 x10^3/uL (1.0-4.8) Monocytes # (Auto) 0.4 x10^3/uL (0.0-1.1) Eosinophils # (Auto) 0.1 x10^3/uL (0.0-0.7) Basophils # (Auto) 0.0 x10^3/uL (0.0-0.2) Sodium Level 142 mmol/L (136-145) Potassium Level 3.8 mmol/L (3.5-5.1) Chloride Level 109 mmol/L (98-107) Carbon Dioxide Level 25 mmol/L (21-32) Anion Gap 8 (6-14) Blood Urea Nitrogen 18 mg/dL (7-20) Creatinine 0.8 mg/dL (0.6-1.0) Estimated GFR (Cockcroft-Gault) 89.8 BUN/Creatinine Ratio 23 (6-20) Glucose Level 85 mg/dL (70-99) Calcium Level 8.3 mg/dL (8.5-10.1) Total Bilirubin 0.5 mg/dL (0.2-1.0) Aspartate Amino Transf (AST/SGOT) 20 U/L (15-37) Alanine Aminotransferase (ALT/SGPT) 24 U/L (14-59) Alkaline Phosphatase 45 U/L (46-116) Total Protein 5.6 g/dL (6.4-8.2) Albumin 2.6 g/dL (3.4-5.0) Albumin/Globulin Ratio 0.9 (1.0-1.7) Test 01/09/17 03:00 White Blood Count 6.4 x10^3/uL (4.0-11.0) Red Blood Count 2.58 x10^6/uL (3.50-5.40) Hemoglobin 8.7 g/dL (12.0-15.5) Hematocrit 25.7 % (36.0-47.0) Mean Corpuscular Volume 99 fL (79-100) Mean Corpuscular Hemoglobin 34 pg (25-35) Mean Corpuscular Hemoglobin Concent 34 g/dL (31-37) Red Cell Distribution Width 14.2 % (11.5-14.5) Platelet Count 191 x10^3/uL (140-400) Neutrophils (%) (Auto) 75 % (31-73) Lymphocytes (%) (Auto) 17 % (24-48) Monocytes (%) (Auto) 7 % (0-9) Eosinophils (%) (Auto) 1 % (0-3) Basophils (%) (Auto) 0 % (0-3) Neutrophils # (Auto) 4.8 x10^3uL (1.8-7.7) Lymphocytes # (Auto) 1.1 x10^3/uL (1.0-4.8) Monocytes # (Auto) 0.5 x10^3/uL (0.0-1.1) Eosinophils # (Auto) 0.1 x10^3/uL (0.0-0.7) Basophils # (Auto) 0.0 x10^3/uL (0.0-0.2) Sodium Level 141 mmol/L (136-145) Potassium Level 3.7 mmol/L (3.5-5.1) Chloride Level 108 mmol/L (98-107) Carbon Dioxide Level 26 mmol/L (21-32) Anion Gap 7 (6-14) Blood Urea Nitrogen 12 mg/dL (7-20) Creatinine 0.8 mg/dL (0.6-1.0) Estimated GFR (Cockcroft-Gault) 89.8 BUN/Creatinine Ratio 15 (6-20) Glucose Level 83 mg/dL (70-99) Calcium Level 8.6 mg/dL (8.5-10.1) Total Bilirubin 0.5 mg/dL (0.2-1.0) Aspartate Amino Transf (AST/SGOT) 21 U/L (15-37) Alanine Aminotransferase (ALT/SGPT) 33 U/L (14-59) Alkaline Phosphatase 44 U/L (46-116) Total Protein 5.8 g/dL (6.4-8.2) Albumin 2.8 g/dL (3.4-5.0) Albumin/Globulin Ratio 0.9 (1.0-1.7) Laboratory Tests Test 01/08/17 14:05 01/09/17 03:00 White Blood Count 5.7 x10^3/uL (4.0-11.0) 6.4 x10^3/uL (4.0-11.0) Red Blood Count 2.91 x10^6/uL (3.50-5.40) 2.58 x10^6/uL (3.50-5.40) Hemoglobin 9.6 g/dL (12.0-15.5) 8.7 g/dL (12.0-15.5) Hematocrit 29.0 % (36.0-47.0) 25.7 % (36.0-47.0) Mean Corpuscular Volume 100 fL (79-100) 99 fL (79-100) Mean Corpuscular Hemoglobin 33 pg (25-35) 34 pg (25-35) Mean Corpuscular Hemoglobin Concent 33 g/dL (31-37) 34 g/dL (31-37) Red Cell Distribution Width 14.6 % (11.5-14.5) 14.2 % (11.5-14.5) Platelet Count 201 x10^3/uL (140-400) 191 x10^3/uL (140-400) Neutrophils (%) (Auto) 75 % (31-73) Lymphocytes (%) (Auto) 17 % (24-48) Monocytes (%) (Auto) 7 % (0-9) Eosinophils (%) (Auto) 1 % (0-3) Basophils (%) (Auto) 0 % (0-3) Neutrophils # (Auto) 4.8 x10^3uL (1.8-7.7) Lymphocytes # (Auto) 1.1 x10^3/uL (1.0-4.8) Monocytes # (Auto) 0.5 x10^3/uL (0.0-1.1) Eosinophils # (Auto) 0.1 x10^3/uL (0.0-0.7) Basophils # (Auto) 0.0 x10^3/uL (0.0-0.2) Sodium Level 141 mmol/L (136-145) Potassium Level 3.7 mmol/L (3.5-5.1) Chloride Level 108 mmol/L (98-107) Carbon Dioxide Level 26 mmol/L (21-32) Anion Gap 7 (6-14) Blood Urea Nitrogen 12 mg/dL (7-20) Creatinine 0.8 mg/dL (0.6-1.0) Estimated GFR (Cockcroft-Gault) 89.8 BUN/Creatinine Ratio 15 (6-20) Glucose Level 83 mg/dL (70-99) Calcium Level 8.6 mg/dL (8.5-10.1) Total Bilirubin 0.5 mg/dL (0.2-1.0) Aspartate Amino Transf (AST/SGOT) 21 U/L (15-37) Alanine Aminotransferase (ALT/SGPT) 33 U/L (14-59) Alkaline Phosphatase 44 U/L (46-116) Total Protein 5.8 g/dL (6.4-8.2) Albumin 2.8 g/dL (3.4-5.0) Albumin/Globulin Ratio 0.9 (1.0-1.7) Medications Current Medications Pantoprazole Sodium (Protonix Vial) 40 mg 1X ONCE IVP Last administered on 13:03; Start 01/07/17 at 13:00; Stop 01/07/17 at 13:01; Status DC Pantoprazole Sodium 80 mg/ Sodium Chloride 100 ml @ 10 mls/hr Q10H IV Last administered on 01/09/17 06:30; Start 01/07/17 at 13:30 Fentanyl Citrate (Fentanyl 2ml Vial) 25 mcg PRN Q15MIN PRN IV PAIN GREATER THAN 3/10 Last administered on 01/07/17 13:04; Start 01/07/17 at 12:00; Stop 01/07/17 at 17:00; Status DC Ondansetron HCl (Zofran) 4 mg 1X ONCE IV Last administered on 01/07/17 13:03 ; Start 01/07/17 at 13:00; Stop 01/07/17 at 13:01; Status DC Sodium Chloride 1,000 ml @ 1,000 mls/hr 1X ONCE IV Last administered on 01/07 13:04; Start 01/07/17 at 13:00; Stop 01/07/17 at 13:59; Status DC Ondansetron HCl (Zofran) 4 mg PRN Q6HRS PRN IV NAUSEA/VOMITING Last administered on 01/07/17t 15:57; Start 01/07/17 at 13:15; Stop 01/08/17 at 13 :14; Status DC Fentanyl Citrate (Fentanyl 2ml Vial) 25 mcg PRN Q5MIN PRN IV MILD PAIN; Start 01/07/17 at 13:15; Stop 01/07/17 at 17:00; Status DC Fentanyl Citrate (Fentanyl 2ml Vial) 50 mcg PRN Q5MIN PRN IV MODERATE PAIN; Start 01/07/17 at 13:15; Stop 01/07/17 at 17:00; Status DC Morphine Sulfate 1 mg PRN Q10MIN PRN IV SEVERE PAIN; Start 01/07/17 at 13:15; Stop 01/07/17 at 17:00; Status DC Ringer's Solution 1,000 ml @ 0 mls/hr Q0M IV ; Start 01/07/17 at 13:09; Stop 01/08/17 at 01:08; Status DC Lidocaine HCl (Xylocaine-Mpf 1% Vial) 2 ml PRN 1X PRN ID PRIOR TO IV START; Start 01/07/17 at 13:15; Stop 01/07/17 at 17:00; Status DC Hydromorphone HCl (Dilaudid) 0.5 mg PRN Q10MIN PRN IV SEV PAIN, Second choice; Start 01/07/17 at 13:15; Stop 01/07/17 at 17:00; Status DC Prochlorperazine Edisylate (Compazine) 5 mg PACU PRN PRN IV NAUSEA, MRX1; Start 01/07/17 at 13:15; Stop 01/08/17 at 13:14; Status DC Ceftriaxone Sodium 50 ml @ 100 mls/hr 1X ONCE IV Last administered on t 13:55; Start 01/07/17 at 14:00; Stop 01/07/17 at 14:29; Status DC Ceftriaxone Sodium 50 ml @ As Directed STK-MED ONCE IV ; Start 01/07/17 at 13: 53; Stop 01/07/17 at 13:54; Status DC Ceftriaxone Sodium 50 ml @ 100 mls/hr 1X ONCE IV ; Start 01/07/17 at 14:00; Stop 01/07/17 at 14:29; Status UNV Propofol 40 ml @ As Directed STK-MED ONCE IV ; Start 01/07/17 at 14:16; Stop 01/07/17 at 14:17; Status DC Lidocaine HCl (Lidocaine Pf 2% Vial) 5 ml STK-MED ONCE .ROUTE ; Start 01/07/17 at 14:16; Stop 01/07/17 at 14:17; Status DC Epinephrine HCl (Adrenalin) 1 mg STK-MED ONCE SQ Last administered on t 14:41; Start 01/07/17 at 14:41; Stop 01/07/17 at 14:48; Status DC Epinephrine HCl (EPINEPHrine SYRINGE) 1 mg STK-MED ONCE .ROUTE ; Start at 14:55; Stop 01/07/17 at 14:56; Status DC Non-Formulary Medication 1 puff PRN Q6HRS PRN INH SHORTNESS OF BREATH; Start 01/07/17 at 16:30; Stop 01/07/17 at 16:30; Status DC Albuterol Sulfate (Ventolin Neb Soln) 2.5 mg PRN Q6HRS PRN NEB SHORTNESS OF BREATH; Start 01/07/17 at 16:30 Info (Do NOT chart on this placeholder) 1 each 1X ONCE MC ; Start 01/07/17 at 16:45; Stop 01/07/17 at 16:46; Status UNV Influenza Virus Vaccine Quadrival (Fluarix Quad [id number] Syringe) 0.5 ml ONCE ONCE VAX IM Last administered on 01/07/17 18:22; Start 01/07/17 at 16:45; Stop 01/07/17 at 16:46; Status DC Sodium Chloride 1,000 ml @ 100 mls/hr Q10H IV Last administered on 01/09/17 06:33; Start 01/07/17 at 17:00 Hydralazine HCl (Apresoline Inj) 10 mg PRN Q4HRS PRN IVP ELEVATED BP, SEE COMMENTS; Start 01/07/17 at 17:00 Ondansetron HCl (Zofran) 4 mg PRN Q6HRS PRN IV NAUSEA/VOMITING; Start at 17:00 Iron Sucrose 500 mg/Sodium Chloride 275 ml @ 78.571 mls/ hr 1X ONCE IV Last administered on 01/08/17t 13:26; Start 01/08/17 at 11:30; Stop 01/08/17 at 14 :59; Status DC Vitamin B Complex (Folbic Tablet) 1 tab DAILY PO ; Start 01/09/17 at 11:00 Active Scripts Active Reported Proair Hfa Inhaler (Albuterol Sulfate) 8.5 Gm Hfa.aer.ad 1 Puff INH PRN Q6HRS PRN Gabapentin 100 Mg Capsule 100 Mg PO BID Protonix (Pantoprazole Sodium) 40 Mg Tablet. 1 Tab PO BID Vesicare (Solifenacin Succinate) 10 Mg Tablet 1 Tab PO DAILY Hydrochlorothiazide Tablet (Hydrochlorothiazide) 25 Mg Tablet 1 Tab PO DAILY Lisinopril 10 Mg Tablet 1 Tab PO DAILY Tylenol (Acetaminophen) 325 Mg Tablet 4 Tab PO DAILY PRN Polyethylene Glycol 3350 17 Gm Powd.pack 17 Gm PO PRN DAILY PRN Vitals/I & O Vital Sign - Last 24 Hours 01/08/17 01/08/17 01/08/17 01/08/17 11:04 12:40 13:00 15:00 Temp 98.2 98.4 98.2 98.4 Pulse 70 61 59 Resp 14 14 14 B/P (MAP) 123/68 (86) 138/86 (103) 130/82 (98) Pulse Ox 100 96 96 96 O2 Delivery Room Air Room Air Room Air Room Air 01/08/17 01/08/17 01/08/17 01/08/17 16:36 19:51 20:00 23:29 Temp 98.3 98.4 98.4 98.3 98.4 98.4 Pulse 59 69 82 Resp 16 20 20 B/P (MAP) 148/64 (92) 157/72 (100) 142/80 (100) Pulse Ox 99 98 95 O2 Delivery Room Air Room Air Room Air Room Air 01/09/17 01/09/17 01/09/17 01/09/17 03:00 06:50 09:22 10:37 Temp 98.2 97.8 98.0 98.2 97.8 98.0 Pulse 81 72 71 Resp 18 17 17 B/P (MAP) 135/68 (90) 141/73 (95) 150/87 (108) Pulse Ox 96 97 99 O2 Delivery Room Air Room Air Room Air Room Air O2 Flow Rate 2.0 LYNN PAULSON MD Jan 09, 2017 10:55
--- NOTE | 2017-01-09 12:13 | PDOC ---
GI PROGRESS NOTES Date Date/Time DATE: 01/09/17 TIME: 12:11 Subjective Subjective feels well- tolerating liquids Objective Vitals Vital Signs Date Time Temp Pulse Resp B/P (MAP) Pulse Ox O2 Delivery O2 Flow Rate FiO2 01/09/17 10:37 98.0 71 17 150/87 (108) 99 Room Air 98.0 01/09/17 09:22 Room Air 2.0 01/09/17 06:50 97.8 72 17 141/73 (95) 97 Room Air 97.8 01/09/17 03:00 98.2 81 18 135/68 (90) 96 Room Air 98.2 01/08/17 23:29 98.4 82 20 142/80 (100) 95 Room Air 98.4 01/08/17 20:00 Room Air 01/08/17 19:51 98.4 69 20 157/72 (100) 98 Room Air 98.4 01/08/17 16:36 98.3 59 16 148/64 (92) 99 Room Air 98.3 01/08/17 15:00 98.4 59 14 130/82 (98) 96 Room Air 98.4 01/08/17 13:00 61 14 138/86 (103) 96 Room Air 01/08/17 12:40 96 Room Air Labs Labs Laboratory Tests Test 01/08/17 14:05 01/09/17 03:00 White Blood Count 5.7 x10^3/uL (4.0-11.0) 6.4 x10^3/uL (4.0-11.0) Red Blood Count 2.91 x10^6/uL (3.50-5.40) 2.58 x10^6/uL (3.50-5.40) Hemoglobin 9.6 g/dL (12.0-15.5) 8.7 g/dL (12.0-15.5) Hematocrit 29.0 % (36.0-47.0) 25.7 % (36.0-47.0) Mean Corpuscular Volume 100 fL (79-100) 99 fL (79-100) Mean Corpuscular Hemoglobin 33 pg (25-35) 34 pg (25-35) Mean Corpuscular Hemoglobin Concent 33 g/dL (31-37) 34 g/dL (31-37) Red Cell Distribution Width 14.6 % (11.5-14.5) 14.2 % (11.5-14.5) Platelet Count 201 x10^3/uL (140-400) 191 x10^3/uL (140-400) Neutrophils (%) (Auto) 75 % (31-73) Lymphocytes (%) (Auto) 17 % (24-48) Monocytes (%) (Auto) 7 % (0-9) Eosinophils (%) (Auto) 1 % (0-3) Basophils (%) (Auto) 0 % (0-3) Neutrophils # (Auto) 4.8 x10^3uL (1.8-7.7) Lymphocytes # (Auto) 1.1 x10^3/uL (1.0-4.8) Monocytes # (Auto) 0.5 x10^3/uL (0.0-1.1) Eosinophils # (Auto) 0.1 x10^3/uL (0.0-0.7) Basophils # (Auto) 0.0 x10^3/uL (0.0-0.2) Sodium Level 141 mmol/L (136-145) Potassium Level 3.7 mmol/L (3.5-5.1) Chloride Level 108 mmol/L (98-107) Carbon Dioxide Level 26 mmol/L (21-32) Anion Gap 7 (6-14) Blood Urea Nitrogen 12 mg/dL (7-20) Creatinine 0.8 mg/dL (0.6-1.0) Estimated GFR (Cockcroft-Gault) 89.8 BUN/Creatinine Ratio 15 (6-20) Glucose Level 83 mg/dL (70-99) Calcium Level 8.6 mg/dL (8.5-10.1) Total Bilirubin 0.5 mg/dL (0.2-1.0) Aspartate Amino Transf (AST/SGOT) 21 U/L (15-37) Alanine Aminotransferase (ALT/SGPT) 33 U/L (14-59) Alkaline Phosphatase 44 U/L (46-116) Total Protein 5.8 g/dL (6.4-8.2) Albumin 2.8 g/dL (3.4-5.0) Albumin/Globulin Ratio 0.9 (1.0-1.7) Physical Exam Physical Exam chest- clear abd- soft NON tender Assessment Assessment anastomotic ulcer with bleeding- stable after EGD control - Hgb stable at 8.7 - no further overt bleeding Continue with liquids and monitor Problems: FAISAL SNYDER MD Jan 09, 2017 12:13
[2017-01-09] MEDS: VITAMIN B12,B9,B6 COMPLEX 1 TABLET. PO SCH (12:31)
[2017-01-09 14:22] VITALS: BP 148/82
[2017-01-09] MEDS: SUCRALFATE 1 GM/10 ML ORAL.SUSP. PO SCH ×2 (17:00→21:25)
[2017-01-09 19:00] VITALS: BP 144/87
[2017-01-09 23:12] VITALS: BP 137/78
[2017-01-10] MEDS: IV NORMAL SALINE 1000ML BAG 1,000 ML IV SCH (03:26)
[2017-01-10 03:30] VITALS: BP 143/75
[2017-01-10 06:05] LABS: BASO % 1 % (0-3); EOS % 2 % (0-3); HEMOGLOBIN 8.6 g/dL (12.0-15.5); LYMPH # 1.3 x10^3/uL (1.0-4.8); LYMPH % 22 % (24-48); MEAN CORPUSCULAR HEMOGLOBIN 34 pg (25-35); MEAN CORPUSCULAR HGB CONC 34 g/dL (31-37); MEAN CORPUSCULAR VOLUME 98 fL (79-100); MONO % 10 % (0-9); NEUT % 66 % (31-73); PLATELET COUNT 199 x10^3/uL (140-400); RED BLOOD COUNT 2.56 x10^6/uL (3.50-5.40); WHITE BLOOD COUNT 5.8 x10^3/uL (4.0-11.0)
[2017-01-10 06:18] LABS: ALBUMIN 2.9 g/dL (3.4-5.0); ALBUMIN/GLOBULIN RATIO 0.9 (1.0-1.7); CALCIUM 8.8 mg/dL (8.5-10.1); CREATININE 0.7 mg/dL (0.6-1.0); GFR 104.7; POTASSIUM 3.7 mmol/L (3.5-5.1); TOTAL BILIRUBIN 0.4 mg/dL (0.2-1.0); TOTAL PROTEIN 6.1 g/dL (6.4-8.2)
[2017-01-10] MEDS: SUCRALFATE 1 GM/10 ML ORAL.SUSP. PO SCH ×4 (06:18→20:43)
[2017-01-10 06:55] VITALS: BP 141/89
[2017-01-10] MEDS ORDERED: PANTOPRAZOLE 40 MG TABLET.DR. PO SCH (07:30)
[2017-01-10] MEDS: VITAMIN B12,B9,B6 COMPLEX 1 TABLET. PO SCH (08:56)
[2017-01-10 10:28] VITALS: BP 147/90
[2017-01-10] MEDS ORDERED: PANT40TA3 PO (11:15)
[2017-01-10] MEDS ORDERED: SUCR1TAB35 PO (11:15)
--- NOTE | 2017-01-10 11:20 | PDOC ---
PROGRESS NOTES Chief Complaint Chief Complaint Melena acute blood loss anemia and upper GI bleed ASSESSMENT AND PLAN: 1. Gastric ulcer: s/p EGD 01/07 with intestinal anastomotic ulcer s/p cautery/ epi injection. no sign of ongoing bleed. cont IV PPI. clears this AM, advance to full liquid 2. Anemia: multifactorial, incl GIB (now stable post PRBC x1); inflammation, iron deficiency. s/p IV iron x1, cont PO iron started PO B12 complex 3. Macrocytosis: not B12/folate related. 4. HTN: 5. Protein malnutrition: moderate; poss exacerbated by inflammatory response 6. nausea, new 01/10, with poor PO [place] . History of Present Illness History of Present Illness no abd pain, marked nausea. no appetite Vitals Vitals Vital Signs Date Time Temp Pulse Resp B/P (MAP) Pulse Ox O2 Delivery O2 Flow Rate FiO2 01/10/17 10:28 97.8 67 17 147/90 (109) 96 Room Air 97.8 01/10/17 08:00 2.0 Physical Exam General: Alert, Oriented X3, Cooperative, No acute distress Heart: Regular rate Lungs: Clear Abdomen: Normal bowel sounds, Soft, No tenderness Extremities: No edema Skin: No rashes Labs LABS Laboratory Tests Test 01/10/17 05:24 White Blood Count 5.8 x10^3/uL (4.0-11.0) Red Blood Count 2.56 x10^6/uL (3.50-5.40) Hemoglobin 8.6 g/dL (12.0-15.5) Hematocrit 25.0 % (36.0-47.0) Mean Corpuscular Volume 98 fL (79-100) Mean Corpuscular Hemoglobin 34 pg (25-35) Mean Corpuscular Hemoglobin Concent 34 g/dL (31-37) Red Cell Distribution Width 14.0 % (11.5-14.5) Platelet Count 199 x10^3/uL (140-400) Neutrophils (%) (Auto) 66 % (31-73) Lymphocytes (%) (Auto) 22 % (24-48) Monocytes (%) (Auto) 10 % (0-9) Eosinophils (%) (Auto) 2 % (0-3) Basophils (%) (Auto) 1 % (0-3) Neutrophils # (Auto) 3.8 x10^3uL (1.8-7.7) Lymphocytes # (Auto) 1.3 x10^3/uL (1.0-4.8) Monocytes # (Auto) 0.6 x10^3/uL (0.0-1.1) Eosinophils # (Auto) 0.1 x10^3/uL (0.0-0.7) Basophils # (Auto) 0.0 x10^3/uL (0.0-0.2) Sodium Level 143 mmol/L (136-145) Potassium Level 3.7 mmol/L (3.5-5.1) Chloride Level 107 mmol/L (98-107) Carbon Dioxide Level 27 mmol/L (21-32) Anion Gap 9 (6-14) Blood Urea Nitrogen 8 mg/dL (7-20) Creatinine 0.7 mg/dL (0.6-1.0) Estimated GFR (Cockcroft-Gault) 104.7 BUN/Creatinine Ratio 11 (6-20) Glucose Level 97 mg/dL (70-99) Calcium Level 8.8 mg/dL (8.5-10.1) Total Bilirubin 0.4 mg/dL (0.2-1.0) Aspartate Amino Transf (AST/SGOT) 23 U/L (15-37) Alanine Aminotransferase (ALT/SGPT) 21 U/L (14-59) Alkaline Phosphatase 47 U/L (46-116) Total Protein 6.1 g/dL (6.4-8.2) Albumin 2.9 g/dL (3.4-5.0) Albumin/Globulin Ratio 0.9 (1.0-1.7) Assessment and Plan Assessmemt and Plan Problems Medical Problems: (1) Anemia Status: Acute Problems: Comment Review of Relevant I have reviewed the following items ana (where applicable) has been applied. Labs Laboratory Tests Test 01/08/17 14:05 01/09/17 03:00 01/10/17 05:24 White Blood Count 5.7 x10^3/uL (4.0-11.0) 6.4 x10^3/uL (4.0-11.0) 5.8 x10^3/uL (4.0-11.0) Red Blood Count 2.91 x10^6/uL (3.50-5.40) 2.58 x10^6/uL (3.50-5.40) 2.56 x10^6/uL (3.50-5.40) Hemoglobin 9.6 g/dL (12.0-15.5) 8.7 g/dL (12.0-15.5) 8.6 g/dL (12.0-15.5) Hematocrit 29.0 % (36.0-47.0) 25.7 % (36.0-47.0) 25.0 % (36.0-47.0) Mean Corpuscular Volume 100 fL (79-100) 99 fL (79-100) 98 fL (79-100) Mean Corpuscular Hemoglobin 33 pg (25-35) 34 pg (25-35) 34 pg (25-35) Mean Corpuscular Hemoglobin Concent 33 g/dL (31-37) 34 g/dL (31-37) 34 g/dL (31-37) Red Cell Distribution Width 14.6 % (11.5-14.5) 14.2 % (11.5-14.5) 14.0 % (11.5-14.5) Platelet Count 201 x10^3/uL (140-400) 191 x10^3/uL (140-400) 199 x10^3/uL (140-400) Neutrophils (%) (Auto) 75 % (31-73) 66 % (31-73) Lymphocytes (%) (Auto) 17 % (24-48) 22 % (24-48) Monocytes (%) (Auto) 7 % (0-9) 10 % (0-9) Eosinophils (%) (Auto) 1 % (0-3) 2 % (0-3) Basophils (%) (Auto) 0 % (0-3) 1 % (0-3) Neutrophils # (Auto) 4.8 x10^3uL (1.8-7.7) 3.8 x10^3uL (1.8-7.7) Lymphocytes # (Auto) 1.1 x10^3/uL (1.0-4.8) 1.3 x10^3/uL (1.0-4.8) Monocytes # (Auto) 0.5 x10^3/uL (0.0-1.1) 0.6 x10^3/uL (0.0-1.1) Eosinophils # (Auto) 0.1 x10^3/uL (0.0-0.7) 0.1 x10^3/uL (0.0-0.7) Basophils # (Auto) 0.0 x10^3/uL (0.0-0.2) 0.0 x10^3/uL (0.0-0.2) Sodium Level 141 mmol/L (136-145) 143 mmol/L (136-145) Potassium Level 3.7 mmol/L (3.5-5.1) 3.7 mmol/L (3.5-5.1) Chloride Level 108 mmol/L (98-107) 107 mmol/L (98-107) Carbon Dioxide Level 26 mmol/L (21-32) 27 mmol/L (21-32) Anion Gap 7 (6-14) 9 (6-14) Blood Urea Nitrogen 12 mg/dL (7-20) 8 mg/dL (7-20) Creatinine 0.8 mg/dL (0.6-1.0) 0.7 mg/dL (0.6-1.0) Estimated GFR (Cockcroft-Gault) 89.8 104.7 BUN/Creatinine Ratio 15 (6-20) 11 (6-20) Glucose Level 83 mg/dL (70-99) 97 mg/dL (70-99) Calcium Level 8.6 mg/dL (8.5-10.1) 8.8 mg/dL (8.5-10.1) Total Bilirubin 0.5 mg/dL (0.2-1.0) 0.4 mg/dL (0.2-1.0) Aspartate Amino Transf (AST/SGOT) 21 U/L (15-37) 23 U/L (15-37) Alanine Aminotransferase (ALT/SGPT) 33 U/L (14-59) 21 U/L (14-59) Alkaline Phosphatase 44 U/L (46-116) 47 U/L (46-116) Total Protein 5.8 g/dL (6.4-8.2) 6.1 g/dL (6.4-8.2) Albumin 2.8 g/dL (3.4-5.0) 2.9 g/dL (3.4-5.0) Albumin/Globulin Ratio 0.9 (1.0-1.7) 0.9 (1.0-1.7) Laboratory Tests Test 01/10/17 05:24 White Blood Count 5.8 x10^3/uL (4.0-11.0) Red Blood Count 2.56 x10^6/uL (3.50-5.40) Hemoglobin 8.6 g/dL (12.0-15.5) Hematocrit 25.0 % (36.0-47.0) Mean Corpuscular Volume 98 fL (79-100) Mean Corpuscular Hemoglobin 34 pg (25-35) Mean Corpuscular Hemoglobin Concent 34 g/dL (31-37) Red Cell Distribution Width 14.0 % (11.5-14.5) Platelet Count 199 x10^3/uL (140-400) Neutrophils (%) (Auto) 66 % (31-73) Lymphocytes (%) (Auto) 22 % (24-48) Monocytes (%) (Auto) 10 % (0-9) Eosinophils (%) (Auto) 2 % (0-3) Basophils (%) (Auto) 1 % (0-3) Neutrophils # (Auto) 3.8 x10^3uL (1.8-7.7) Lymphocytes # (Auto) 1.3 x10^3/uL (1.0-4.8) Monocytes # (Auto) 0.6 x10^3/uL (0.0-1.1) Eosinophils # (Auto) 0.1 x10^3/uL (0.0-0.7) Basophils # (Auto) 0.0 x10^3/uL (0.0-0.2) Sodium Level 143 mmol/L (136-145) Potassium Level 3.7 mmol/L (3.5-5.1) Chloride Level 107 mmol/L (98-107) Carbon Dioxide Level 27 mmol/L (21-32) Anion Gap 9 (6-14) Blood Urea Nitrogen 8 mg/dL (7-20) Creatinine 0.7 mg/dL (0.6-1.0) Estimated GFR (Cockcroft-Gault) 104.7 BUN/Creatinine Ratio 11 (6-20) Glucose Level 97 mg/dL (70-99) Calcium Level 8.8 mg/dL (8.5-10.1) Total Bilirubin 0.4 mg/dL (0.2-1.0) Aspartate Amino Transf (AST/SGOT) 23 U/L (15-37) Alanine Aminotransferase (ALT/SGPT) 21 U/L (14-59) Alkaline Phosphatase 47 U/L (46-116) Total Protein 6.1 g/dL (6.4-8.2) Albumin 2.9 g/dL (3.4-5.0) Albumin/Globulin Ratio 0.9 (1.0-1.7) Microbiology 01/07/17 Urine Culture - Final, Complete 01/07/17 Urine Culture Result 1 (WINTER) - Final, Complete Medications Current Medications Pantoprazole Sodium (Protonix Vial) 40 mg 1X ONCE IVP Last administered on 13:03; Start 01/07/17 at 13:00; Stop 01/07/17 at 13:01; Status DC Pantoprazole Sodium 80 mg/ Sodium Chloride 100 ml @ 10 mls/hr Q10H IV Last administered on 01/09/17 06:30; Start 01/07/17 at 13:30; Stop 01/09/17 at 12 :15; Status DC Fentanyl Citrate (Fentanyl 2ml Vial) 25 mcg PRN Q15MIN PRN IV PAIN GREATER THAN 3/10 Last administered on 01/07/17 13:04; Start 01/07/17 at 12:00; Stop 01/07/17 at 17:00; Status DC Ondansetron HCl (Zofran) 4 mg 1X ONCE IV Last administered on 01/07/17 13:03 ; Start 01/07/17 at 13:00; Stop 01/07/17 at 13:01; Status DC Sodium Chloride 1,000 ml @ 1,000 mls/hr 1X ONCE IV Last administered on 01/07 13:04; Start 01/07/17 at 13:00; Stop 01/07/17 at 13:59; Status DC Ondansetron HCl (Zofran) 4 mg PRN Q6HRS PRN IV NAUSEA/VOMITING Last administered on 01/07/17 15:57; Start 01/07/17 at 13:15; Stop 01/08/17 at 13 :14; Status DC Fentanyl Citrate (Fentanyl 2ml Vial) 25 mcg PRN Q5MIN PRN IV MILD PAIN; Start 01/07/17 at 13:15; Stop 01/07/17 at 17:00; Status DC Fentanyl Citrate (Fentanyl 2ml Vial) 50 mcg PRN Q5MIN PRN IV MODERATE PAIN; Start 01/07/17 at 13:15; Stop 01/07/17 at 17:00; Status DC Morphine Sulfate 1 mg PRN Q10MIN PRN IV SEVERE PAIN; Start 01/07/17 at 13:15; Stop 01/07/17 at 17:00; Status DC Ringer's Solution 1,000 ml @ 0 mls/hr Q0M IV ; Start 01/07/17 at 13:09; Stop 01/08/17 at 01:08; Status DC Lidocaine HCl (Xylocaine-Mpf 1% Vial) 2 ml PRN 1X PRN ID PRIOR TO IV START; Start 01/07/17 at 13:15; Stop 01/07/17 at 17:00; Status DC Hydromorphone HCl (Dilaudid) 0.5 mg PRN Q10MIN PRN IV SEV PAIN, Second choice; Start 01/07/17 at 13:15; Stop 01/07/17 at 17:00; Status DC Prochlorperazine Edisylate (Compazine) 5 mg PACU PRN PRN IV NAUSEA, MRX1; Start 01/07/17 at 13:15; Stop 01/08/17 at 13:14; Status DC Ceftriaxone Sodium 50 ml @ 100 mls/hr 1X ONCE IV Last administered on t 13:55; Start 01/07/17 at 14:00; Stop 01/07/17 at 14:29; Status DC Ceftriaxone Sodium 50 ml @ As Directed STK-MED ONCE IV ; Start 01/07/17 at 13: 53; Stop 01/07/17 at 13:54; Status DC Ceftriaxone Sodium 50 ml @ 100 mls/hr 1X ONCE IV ; Start 01/07/17 at 14:00; Stop 01/07/17 at 14:29; Status UNV Propofol 40 ml @ As Directed STK-MED ONCE IV ; Start 01/07/17 at 14:16; Stop 01/07/17 at 14:17; Status DC Lidocaine HCl (Lidocaine Pf 2% Vial) 5 ml STK-MED ONCE .ROUTE ; Start 01/07/17 at 14:16; Stop 01/07/17 at 14:17; Status DC Epinephrine HCl (Adrenalin) 1 mg STK-MED ONCE SQ Last administered on 14:41; Start 01/07/17 at 14:41; Stop 01/07/17 at 14:48; Status DC Epinephrine HCl (EPINEPHrine SYRINGE) 1 mg STK-MED ONCE .ROUTE ; Start at 14:55; Stop 01/07/17 at 14:56; Status DC Non-Formulary Medication 1 puff PRN Q6HRS PRN INH SHORTNESS OF BREATH; Start 01/07/17 at 16:30; Stop 01/07/17 at 16:30; Status DC Albuterol Sulfate (Ventolin Neb Soln) 2.5 mg PRN Q6HRS PRN NEB SHORTNESS OF BREATH; Start 01/07/17 at 16:30 Info (Do NOT chart on this placeholder) 1 each 1X ONCE MC ; Start 01/07/17 at 16:45; Stop 01/07/17 at 16:46; Status UNV Influenza Virus Vaccine Quadrival (Fluarix Quad [id number] Syringe) 0.5 ml ONCE ONCE VAX IM Last administered on 01/07/17 18:22; Start 01/07/17 at 16:45; Stop 01/07/17 at 16:46; Status DC Sodium Chloride 1,000 ml @ 100 mls/hr Q10H IV Last administered on 01/10/17 03:26; Start 01/07/17 at 17:00 Hydralazine HCl (Apresoline Inj) 10 mg PRN Q4HRS PRN IVP ELEVATED BP, SEE COMMENTS; Start 01/07/17 at 17:00 Ondansetron HCl (Zofran) 4 mg PRN Q6HRS PRN IV NAUSEA/VOMITING; Start at 17:00 Iron Sucrose 500 mg/Sodium Chloride 275 ml @ 78.571 mls/ hr 1X ONCE IV Last administered on 01/08/17 13:26; Start 01/08/17 at 11:30; Stop 01/08/17 at 14 :59; Status DC Vitamin B Complex (Folbic Tablet) 1 tab DAILY PO Last administered on 08:56; Start 01/09/17 at 11:00 Pantoprazole Sodium (Protonix) 40 mg DAILYAC PO Last administered on 08:56; Start 01/10/17 at 07:30 Sucralfate (Carafate) 1 gm QIDACHS PO Last administered on 01/10/17 06:18; Start 01/09/17 at 16:30 Active Scripts Active Reported Proair Hfa Inhaler (Albuterol Sulfate) 8.5 Gm Hfa.aer.ad 1 Puff INH PRN Q6HRS PRN Gabapentin 100 Mg Capsule 100 Mg PO BID Protonix (Pantoprazole Sodium) 40 Mg Tablet. 1 Tab PO BID Vesicare (Solifenacin Succinate) 10 Mg Tablet 1 Tab PO DAILY Hydrochlorothiazide Tablet (Hydrochlorothiazide) 25 Mg Tablet 1 Tab PO DAILY Lisinopril 10 Mg Tablet 1 Tab PO DAILY Tylenol (Acetaminophen) 325 Mg Tablet 4 Tab PO DAILY PRN Polyethylene Glycol 3350 17 Gm Powd.pack 17 Gm PO PRN DAILY PRN Vitals/I & O Vital Sign - Last 24 Hours 01/09/17 01/09/17 01/09/17 01/09/17 14:22 19:00 20:00 23:12 Temp 98.0 98.5 98.5 98.0 98.5 98.5 Pulse 69 59 68 Resp 18 16 16 B/P (MAP) 148/82 (104) 144/87 (106) 137/78 (97) Pulse Ox 97 98 97 O2 Delivery Room Air Room Air Room Air Room Air 01/10/17 01/10/17 01/10/17 01/10/17 03:30 06:55 08:00 10:28 Temp 98.1 98.1 97.8 98.1 98.1 97.8 Pulse 55 67 67 Resp 17 B/P (MAP) 143/75 (97) 141/89 (106) 147/90 (109) Pulse Ox 97 98 96 O2 Delivery Room Air Room Air Room Air Room Air O2 Flow Rate 2.0 LYNN PAULSON MD Jan 10, 2017 11:20
[2017-01-10] MEDS: ONDANSETRON PF 4 MG/2 ML VIAL. IV PRN (12:27)
[2017-01-10] MEDS: POTASSIUM CL 20MEQ D5-0.45NACL 1,000 ML IV SCH (12:28)
--- NOTE | 2017-01-10 12:28 | PDOC ---
GI PROGRESS NOTES Date Date/Time DATE: 01/10/17 TIME: 12:26 Subjective Subjective tolerating diet No pain, dysphagia, nausea Objective Vitals Vital Signs Date Time Temp Pulse Resp B/P (MAP) Pulse Ox O2 Delivery O2 Flow Rate FiO2 01/10/17 10:28 97.8 67 17 147/90 (109) 96 Room Air 97.8 01/10/17 08:00 Room Air 2.0 01/10/17 06:55 98.1 67 17 141/89 (106) 98 Room Air 98.1 01/10/17 03:30 98.1 55 16 143/75 (97) 97 Room Air 98.1 01/09/17 23:12 98.5 68 16 137/78 (97) 97 Room Air 98.5 01/09/17 20:00 Room Air 01/09/17 19:00 98.5 59 16 144/87 (106) 98 Room Air 98.5 01/09/17 14:22 98.0 69 18 148/82 (104) 97 Room Air 98.0 Labs Labs Laboratory Tests Test 01/10/17 05:24 White Blood Count 5.8 x10^3/uL (4.0-11.0) Red Blood Count 2.56 x10^6/uL (3.50-5.40) Hemoglobin 8.6 g/dL (12.0-15.5) Hematocrit 25.0 % (36.0-47.0) Mean Corpuscular Volume 98 fL (79-100) Mean Corpuscular Hemoglobin 34 pg (25-35) Mean Corpuscular Hemoglobin Concent 34 g/dL (31-37) Red Cell Distribution Width 14.0 % (11.5-14.5) Platelet Count 199 x10^3/uL (140-400) Neutrophils (%) (Auto) 66 % (31-73) Lymphocytes (%) (Auto) 22 % (24-48) Monocytes (%) (Auto) 10 % (0-9) Eosinophils (%) (Auto) 2 % (0-3) Basophils (%) (Auto) 1 % (0-3) Neutrophils # (Auto) 3.8 x10^3uL (1.8-7.7) Lymphocytes # (Auto) 1.3 x10^3/uL (1.0-4.8) Monocytes # (Auto) 0.6 x10^3/uL (0.0-1.1) Eosinophils # (Auto) 0.1 x10^3/uL (0.0-0.7) Basophils # (Auto) 0.0 x10^3/uL (0.0-0.2) Sodium Level 143 mmol/L (136-145) Potassium Level 3.7 mmol/L (3.5-5.1) Chloride Level 107 mmol/L (98-107) Carbon Dioxide Level 27 mmol/L (21-32) Anion Gap 9 (6-14) Blood Urea Nitrogen 8 mg/dL (7-20) Creatinine 0.7 mg/dL (0.6-1.0) Estimated GFR (Cockcroft-Gault) 104.7 BUN/Creatinine Ratio 11 (6-20) Glucose Level 97 mg/dL (70-99) Calcium Level 8.8 mg/dL (8.5-10.1) Total Bilirubin 0.4 mg/dL (0.2-1.0) Aspartate Amino Transf (AST/SGOT) 23 U/L (15-37) Alanine Aminotransferase (ALT/SGPT) 21 U/L (14-59) Alkaline Phosphatase 47 U/L (46-116) Total Protein 6.1 g/dL (6.4-8.2) Albumin 2.9 g/dL (3.4-5.0) Albumin/Globulin Ratio 0.9 (1.0-1.7) Physical Exam Physical Exam chest- clear abd- soft NON tender Assessment Assessment anastomotic ulcer with bleeding- stable after EGD control - Hgb stable at 8.7 - no further overt bleeding slowly advance diet as tolerated add carafate slurry for treatment of gastric anastomotic ulcer Problems: FAISAL SNYDER MD Jan 10, 2017 12:28
[2017-01-10 15:10] VITALS: BP 131/79
[2017-01-10 18:58] VITALS: BP 144/87
[2017-01-10] MEDS: PANTOPRAZOLE 40 MG TABLET.DR. PO SCH (20:44)
[2017-01-10 22:15] VITALS: BP 143/85
[2017-01-11] MEDS: POTASSIUM CL 20MEQ D5-0.45NACL 1,000 ML IV SCH ×2 (00:26→12:50)
[2017-01-11 02:55] VITALS: BP 151/93
[2017-01-11] MEDS: SUCRALFATE 1 GM/10 ML ORAL.SUSP. PO SCH ×4 (05:51→21:09)
[2017-01-11 07:00] VITALS: BP 145/88
[2017-01-11] MEDS: PANTOPRAZOLE 40 MG TABLET.DR. PO SCH ×2 (08:40→21:09)
[2017-01-11] MEDS: VITAMIN B12,B9,B6 COMPLEX 1 TABLET. PO SCH (08:40)
--- NOTE | 2017-01-11 09:22 | PDOC ---
Subjective: Subjective: Lower back and left knee pain bothersome today. No bleeding, has not had BM yet. No abd pain, a little nausea this morning but ate some eggs. Objective: Vital Signs: Vital Signs Date Time Temp Pulse Resp B/P (MAP) Pulse Ox O2 Delivery O2 Flow Rate FiO2 01/11/17 08:00 Room Air 01/11/17 07:00 97.7 65 18 145/88 (107) 96 97.7 01/10/17 08:00 2.0 PE: GEN: laying on right side, looks a little uncomfortable LUNGS: CTAB HEART: RRR ABD: NABS, S/ND/NT NEURO/PSYCH: A & O 3 A/P: S/p gastric bypass w/ anastomotic ulcer s/p endotherapy 01/07/17 Melena - no recurrence Anemia - Hgb stable -- No recurrent bleeding w/ stable Hgb (last check 01/10). Continue PPI, ADAT, DC per primary. ?[facility] iron supplement Will add Miralax PRN. Needs outpt screening colonoscopy. DHARA STAFFORD Jan 11, 2017 09:22
--- NOTE | 2017-01-11 09:25 | PDOC ---
PROGRESS NOTES Chief Complaint Chief Complaint Melena acute blood loss anemia and upper GI bleed ASSESSMENT AND PLAN: 1. Gastric ulcer: s/p EGD 01/07 with intestinal anastomotic ulcer s/p cautery/ epi injection. no sign of ongoing bleed. cont IV PPI. clears this AM, advance to full liquid 2. Anemia: multifactorial, incl GIB (now stable post PRBC x1); inflammation, iron deficiency. s/p IV iron x1, cont PO iron started PO B12 complex 3. Macrocytosis: not B12/folate related. 4. HTN: 5. Protein malnutrition: moderate; poss exacerbated by inflammatory response 6. nausea, w/ poor po intake, constipation 7. left knee pain, OA . History of Present Illness History of Present Illness no abd pain, marked nausea. no appetite Vitals Vitals Vital Signs Date Time Temp Pulse Resp B/P (MAP) Pulse Ox O2 Delivery O2 Flow Rate FiO2 01/11/17 08:00 Room Air 01/11/17 07:00 97.7 65 18 145/88 (107) 96 97.7 01/10/17 08:00 2.0 Physical Exam General: Alert, Oriented X3, Cooperative, No acute distress Heart: Regular rate Lungs: Clear Abdomen: Normal bowel sounds, Soft, No tenderness Extremities: No edema Skin: No rashes Review of Systems Review of Systems nausea, poor po intake some weakness left knee pain Assessment and Plan Assessmemt and Plan Problems Medical Problems: (1) Anemia Status: Acute Problems: Comment Review of Relevant I have reviewed the following items ana (where applicable) has been applied. Labs Laboratory Tests Test 01/10/17 05:24 White Blood Count 5.8 x10^3/uL (4.0-11.0) Red Blood Count 2.56 x10^6/uL (3.50-5.40) Hemoglobin 8.6 g/dL (12.0-15.5) Hematocrit 25.0 % (36.0-47.0) Mean Corpuscular Volume 98 fL (79-100) Mean Corpuscular Hemoglobin 34 pg (25-35) Mean Corpuscular Hemoglobin Concent 34 g/dL (31-37) Red Cell Distribution Width 14.0 % (11.5-14.5) Platelet Count 199 x10^3/uL (140-400) Neutrophils (%) (Auto) 66 % (31-73) Lymphocytes (%) (Auto) 22 % (24-48) Monocytes (%) (Auto) 10 % (0-9) Eosinophils (%) (Auto) 2 % (0-3) Basophils (%) (Auto) 1 % (0-3) Neutrophils # (Auto) 3.8 x10^3uL (1.8-7.7) Lymphocytes # (Auto) 1.3 x10^3/uL (1.0-4.8) Monocytes # (Auto) 0.6 x10^3/uL (0.0-1.1) Eosinophils # (Auto) 0.1 x10^3/uL (0.0-0.7) Basophils # (Auto) 0.0 x10^3/uL (0.0-0.2) Sodium Level 143 mmol/L (136-145) Potassium Level 3.7 mmol/L (3.5-5.1) Chloride Level 107 mmol/L (98-107) Carbon Dioxide Level 27 mmol/L (21-32) Anion Gap 9 (6-14) Blood Urea Nitrogen 8 mg/dL (7-20) Creatinine 0.7 mg/dL (0.6-1.0) Estimated GFR (Cockcroft-Gault) 104.7 BUN/Creatinine Ratio 11 (6-20) Glucose Level 97 mg/dL (70-99) Calcium Level 8.8 mg/dL (8.5-10.1) Total Bilirubin 0.4 mg/dL (0.2-1.0) Aspartate Amino Transf (AST/SGOT) 23 U/L (15-37) Alanine Aminotransferase (ALT/SGPT) 21 U/L (14-59) Alkaline Phosphatase 47 U/L (46-116) Total Protein 6.1 g/dL (6.4-8.2) Albumin 2.9 g/dL (3.4-5.0) Albumin/Globulin Ratio 0.9 (1.0-1.7) Microbiology 01/07/17 Urine Culture - Final, Complete 01/07/17 Urine Culture Result 1 (WINTER) - Final, Complete Medications Current Medications Pantoprazole Sodium (Protonix Vial) 40 mg 1X ONCE IVP Last administered on t 13:03; Start 01/07/17 at 13:00; Stop 01/07/17 at 13:01; Status DC Pantoprazole Sodium 80 mg/ Sodium Chloride 100 ml @ 10 mls/hr Q10H IV Last administered on 01/09/17 06:30; Start 01/07/17 at 13:30; Stop 01/09/17 at 12 :15; Status DC Fentanyl Citrate (Fentanyl 2ml Vial) 25 mcg PRN Q15MIN PRN IV PAIN GREATER THAN 3/10 Last administered on 01/07/17 13:04; Start 01/07/17 at 12:00; Stop 01/07/17 at 17:00; Status DC Ondansetron HCl (Zofran) 4 mg 1X ONCE IV Last administered on 01/07/17 13:03 ; Start 01/07/17 at 13:00; Stop 01/07/17 at 13:01; Status DC Sodium Chloride 1,000 ml @ 1,000 mls/hr 1X ONCE IV Last administered on 01/07 13:04; Start 01/07/17 at 13:00; Stop 01/07/17 at 13:59; Status DC Ondansetron HCl (Zofran) 4 mg PRN Q6HRS PRN IV NAUSEA/VOMITING Last administered on 01/07/17 15:57; Start 01/07/17 at 13:15; Stop 01/08/17 at 13 :14; Status DC Fentanyl Citrate (Fentanyl 2ml Vial) 25 mcg PRN Q5MIN PRN IV MILD PAIN; Start 01/07/17 at 13:15; Stop 01/07/17 at 17:00; Status DC Fentanyl Citrate (Fentanyl 2ml Vial) 50 mcg PRN Q5MIN PRN IV MODERATE PAIN; Start 01/07/17 at 13:15; Stop 01/07/17 at 17:00; Status DC Morphine Sulfate 1 mg PRN Q10MIN PRN IV SEVERE PAIN; Start 01/07/17 at 13:15; Stop 01/07/17 at 17:00; Status DC Ringer's Solution 1,000 ml @ 0 mls/hr Q0M IV ; Start 01/07/17 at 13:09; Stop 01/08/17 at 01:08; Status DC Lidocaine HCl (Xylocaine-Mpf 1% Vial) 2 ml PRN 1X PRN ID PRIOR TO IV START; Start 01/07/17 at 13:15; Stop 01/07/17 at 17:00; Status DC Hydromorphone HCl (Dilaudid) 0.5 mg PRN Q10MIN PRN IV SEV PAIN, Second choice; Start 01/07/17 at 13:15; Stop 01/07/17 at 17:00; Status DC Prochlorperazine Edisylate (Compazine) 5 mg PACU PRN PRN IV NAUSEA, MRX1; Start 01/07/17 at 13:15; Stop 01/08/17 at 13:14; Status DC Ceftriaxone Sodium 50 ml @ 100 mls/hr 1X ONCE IV Last administered on t 13:55; Start 01/07/17 at 14:00; Stop 01/07/17 at 14:29; Status DC Ceftriaxone Sodium 50 ml @ As Directed STK-MED ONCE IV ; Start 01/07/17 at 13: 53; Stop 01/07/17 at 13:54; Status DC Ceftriaxone Sodium 50 ml @ 100 mls/hr 1X ONCE IV ; Start 01/07/17 at 14:00; Stop 01/07/17 at 14:29; Status UNV Propofol 40 ml @ As Directed STK-MED ONCE IV ; Start 01/07/17 at 14:16; Stop 01/07/17 at 14:17; Status DC Lidocaine HCl (Lidocaine Pf 2% Vial) 5 ml STK-MED ONCE .ROUTE ; Start 01/07/17 at 14:16; Stop 01/07/17 at 14:17; Status DC Epinephrine HCl (Adrenalin) 1 mg STK-MED ONCE SQ Last administered on t 14:41; Start 01/07/17 at 14:41; Stop 01/07/17 at 14:48; Status DC Epinephrine HCl (EPINEPHrine SYRINGE) 1 mg STK-MED ONCE .ROUTE ; Start at 14:55; Stop 01/07/17 at 14:56; Status DC Non-Formulary Medication 1 puff PRN Q6HRS PRN INH SHORTNESS OF BREATH; Start 01/07/17 at 16:30; Stop 01/07/17 at 16:30; Status DC Albuterol Sulfate (Ventolin Neb Soln) 2.5 mg PRN Q6HRS PRN NEB SHORTNESS OF BREATH; Start 01/07/17 at 16:30 Info (Do NOT chart on this placeholder) 1 each 1X ONCE MC ; Start 01/07/17 at 16:45; Stop 01/07/17 at 16:46; Status UNV Influenza Virus Vaccine Quadrival (Fluarix Quad [id number] Syringe) 0.5 ml ONCE ONCE VAX IM Last administered on 01/07/17 18:22; Start 01/07/17 at 16:45; Stop 01/07/17 at 16:46; Status DC Sodium Chloride 1,000 ml @ 100 mls/hr Q10H IV Last administered on 01/10/17 03:26; Start 01/07/17 at 17:00; Stop 01/10/17 at 11:50; Status DC Hydralazine HCl (Apresoline Inj) 10 mg PRN Q4HRS PRN IVP ELEVATED BP, SEE COMMENTS; Start 01/07/17 at 17:00 Ondansetron HCl (Zofran) 4 mg PRN Q6HRS PRN IV NAUSEA/VOMITING Last administered on 01/10/17 12:27; Start 01/07/17 at 17:00 Iron Sucrose 500 mg/Sodium Chloride 275 ml @ 78.571 mls/ hr 1X ONCE IV Last administered on 01/08/17 13:26; Start 01/08/17 at 11:30; Stop 01/08/17 at 14 :59; Status DC Vitamin B Complex (Folbic Tablet) 1 tab DAILY PO Last administered on 08:40; Start 01/09/17 at 11:00 Pantoprazole Sodium (Protonix) 40 mg DAILYAC PO Last administered on 08:56; Start 01/10/17 at 07:30; Stop 01/10/17 at 11:14; Status DC Sucralfate (Carafate) 1 gm QIDACHS PO Last administered on 01/11/17 05:51; Start 01/09/17 at 16:30 Pantoprazole Sodium (Protonix) 40 mg BID PO Last administered on 01/11/17 08: 40; Start 01/10/17 at 21:00 Potassium Chloride/Dextrose/ Sod Cl 1,000 ml @ 80 mls/hr [id number] IV Last administered on 01/11/17 00:26; Start 01/10/17 at 12:00 Active Scripts Active Reported Proair Hfa Inhaler (Albuterol Sulfate) 8.5 Gm Hfa.aer.ad 1 Puff INH PRN Q6HRS PRN Gabapentin 100 Mg Capsule 100 Mg PO BID Protonix (Pantoprazole Sodium) 40 Mg Tablet.dr 1 Tab PO BID Vesicare (Solifenacin Succinate) 10 Mg Tablet 1 Tab PO DAILY Hydrochlorothiazide Tablet (Hydrochlorothiazide) 25 Mg Tablet 1 Tab PO DAILY Lisinopril 10 Mg Tablet 1 Tab PO DAILY Tylenol (Acetaminophen) 325 Mg Tablet 4 Tab PO DAILY PRN Polyethylene Glycol 3350 17 Gm Powd.pack 17 Gm PO PRN DAILY PRN Vitals/I & O Vital Sign - Last 24 Hours 01/10/17 01/10/17 01/10/17 01/10/17 10:28 15:10 18:58 20:00 Temp 97.8 98.2 98.7 97.8 98.2 98.7 Pulse 67 59 68 Resp 17 20 B/P (MAP) 147/90 (109) 131/79 (96) 144/87 (106) Pulse Ox 96 99 99 O2 Delivery Room Air Room Air Room Air Room Air 01/10/17 01/11/17 01/11/17 01/11/17 22:15 02:55 07:00 08:00 Temp 98.3 98.1 97.7 98.3 98.1 97.7 Pulse 67 76 65 Resp 20 18 B/P (MAP) 143/85 (104) 151/93 (112) 145/88 (107) Pulse Ox 98 96 96 O2 Delivery Room Air Room Air Room Air Room Air LYNN PAULSON MD Jan 11, 2017 09:25
[2017-01-11] MEDS ORDERED: POLYETHYLENE GLYCOL 3350 17 GM PACKET. PO PRN (09:45)
[2017-01-11 10:00] VITALS: BP 143/89
[2017-01-11 10:24] LABS: BASO % 0 % (0-3); EOS % 1 % (0-3); HEMATOCRIT 27.1 % (36.0-47.0); HEMOGLOBIN 9.1 g/dL (12.0-15.5); LYMPH % 15 % (24-48); MEAN CORPUSCULAR HEMOGLOBIN 33 pg (25-35); MEAN CORPUSCULAR HGB CONC 34 g/dL (31-37); MEAN CORPUSCULAR VOLUME 99 fL (79-100); MONO % 11 % (0-9); NEUT % 73 % (31-73); PLATELET COUNT 217 x10^3/uL (140-400); RED BLOOD COUNT 2.73 x10^6/uL (3.50-5.40); RED CELL DISTRIBUTION WIDTH 14.3 % (11.5-14.5); WHITE BLOOD COUNT 6.7 x10^3/uL (4.0-11.0)
[2017-01-11] MEDS: DOCUSATE SODIUM 100 MG CAPSULE. PO SCH (10:47)
[2017-01-11] MEDS: IRON POLYSACCHARIDE COMPLEX 150 MG CAPSULE PO SCH (10:47)
[2017-01-11 15:00] VITALS: BP 156/91
--- NOTE | 2017-01-11 17:30 | RAD ---
INDICATION: knee pain, OA COMPARISON: None. IMPRESSION: Left knee: 2 views obtained. Tricompartmental degenerative changes are identified with osteophyte formation at all 3 compartments as well as some irregularity of the joint space. This is moderate to severe in severity. This is more than typically seen for the patient's age.
[2017-01-11 19:00] VITALS: BP 146/96
[2017-01-11] MEDS: ONDANSETRON PF 4 MG/2 ML VIAL. IV PRN (19:24)
[2017-01-11 23:00] VITALS: BP 139/76
[2017-01-12] MEDS: POTASSIUM CL 20MEQ D5-0.45NACL 1,000 ML IV SCH (01:00)
[2017-01-12 03:00] VITALS: BP 153/99
[2017-01-12 05:28] LABS: BASO % 0 % (0-3); EOS % 1 % (0-3); HEMATOCRIT 25.4 % (36.0-47.0); HEMOGLOBIN 8.7 g/dL (12.0-15.5); LYMPH # 1.3 x10^3/uL (1.0-4.8); LYMPH % 18 % (24-48); MEAN CORPUSCULAR HEMOGLOBIN 34 pg (25-35); MEAN CORPUSCULAR HGB CONC 35 g/dL (31-37); MEAN CORPUSCULAR VOLUME 100 fL (79-100); MONO % 12 % (0-9); NEUT % 68 % (31-73); PLATELET COUNT 235 x10^3/uL (140-400); RED BLOOD COUNT 2.54 x10^6/uL (3.50-5.40); RED CELL DISTRIBUTION WIDTH 14.3 % (11.5-14.5); WHITE BLOOD COUNT 7.3 x10^3/uL (4.0-11.0)
[2017-01-12 05:40] LABS: CALCIUM 8.5 mg/dL (8.5-10.1); CREATININE 0.8 mg/dL (0.6-1.0); GFR 89.8; POTASSIUM 3.8 mmol/L (3.5-5.1)
[2017-01-12 07:00] VITALS: BP 159/95
[2017-01-12] MEDS: VITAMIN B12,B9,B6 COMPLEX 1 TABLET. PO SCH (08:57)
[2017-01-12] MEDS: DOCUSATE SODIUM 100 MG CAPSULE. PO SCH (08:57)
[2017-01-12] MEDS: PANTOPRAZOLE 40 MG TABLET.DR. PO SCH (08:57)
[2017-01-12] MEDS: SUCRALFATE 1 GM/10 ML ORAL.SUSP. PO SCH ×2 (08:57→11:59)
[2017-01-12] MEDS: IRON POLYSACCHARIDE COMPLEX 150 MG CAPSULE PO SCH (08:57)
[2017-01-12 11:00] VITALS: BP 125/79
--- NOTE | 2017-01-12 12:19 | PDOC ---
Subjective: Subjective: Feels better today, says going home. Back and knee pain. Black soft stool yesterday. Eating well. Objective: Vital Signs: Vital Signs Date Time Temp Pulse Resp B/P (MAP) Pulse Ox O2 Delivery O2 Flow Rate FiO2 01/12/17 11:00 98.6 74 18 125/79 (94) 99 Room Air 98.6 Labs: Laboratory Tests Test 01/12/17 04:00 White Blood Count 7.3 x10^3/uL Red Blood Count 2.54 x10^6/uL Hemoglobin 8.7 g/dL Hematocrit 25.4 % Mean Corpuscular Volume 100 fL Mean Corpuscular Hemoglobin 34 pg Mean Corpuscular Hemoglobin Concent 35 g/dL Red Cell Distribution Width 14.3 % Platelet Count 235 x10^3/uL Neutrophils (%) (Auto) 68 % Lymphocytes (%) (Auto) 18 % Monocytes (%) (Auto) 12 % Eosinophils (%) (Auto) 1 % Basophils (%) (Auto) 0 % Neutrophils # (Auto) 4.9 x10^3uL Lymphocytes # (Auto) 1.3 x10^3/uL Monocytes # (Auto) 0.9 x10^3/uL Eosinophils # (Auto) 0.1 x10^3/uL Basophils # (Auto) 0.0 x10^3/uL Sodium Level 141 mmol/L Potassium Level 3.8 mmol/L Chloride Level 106 mmol/L Carbon Dioxide Level 30 mmol/L Anion Gap 5 Blood Urea Nitrogen 6 mg/dL Creatinine 0.8 mg/dL Estimated GFR (Cockcroft-Gault) 89.8 Glucose Level 101 mg/dL Calcium Level 8.5 mg/dL PE: GEN: NAD LUNGS: CTAB HEART: RRR ABD: NABS, S/ND/NT NEURO/PSYCH: A & O 3 A/P: S/p gastric bypass w/ anastomotic ulcer s/p endotherapy 01/07/17 Melena - had one dark stool yesterday, first since admission (and also on iron) Anemia - Hgb stable -- DC per primary. Continue PPI, iron, along w/ Miralax as needed. Needs outpt screening colonoscopy. DHARA STAFFORD Jan 12, 2017 12:19
== END 2017-01-12 15:23 | disposition home or self-care (01) | DRG 378 ==
LOC: ER 11:17 → 6 SOUTH 13:20 → 1 WEST ICU 15:11 → 6 SOUTH 01-08 16:27
PROVIDERS: ADMIT Internal Medicine Hematology & Oncology; ATTEND Internal Medicine Hematology & Oncology
PROC: 0DB68ZX Excision of Stomach, Via Natural or Artificial Opening Endoscopic, Diagnostic (ICD-10-PCS; principal; 2017-01-07 14:00)
PROC: 0W3P8ZZ Control Bleeding in Gastrointestinal Tract, Via Natural or Artificial Opening Endoscopic (ICD-10-PCS; 2017-01-07 14:00)
PROC: 30233N1 Transfusion of Nonautologous Red Blood Cells into Peripheral Vein, Percutaneous Approach (ICD-10-PCS; 2017-01-08)
DX: K28.4 Chronic or unspecified gastrojejunal ulcer with hemorrhage (principal); D62 Acute posthemorrhagic anemia; E44.0 Moderate protein-calorie malnutrition; K92.1 Melena; Z98.84 Bariatric surgery status; D50.9 Iron deficiency anemia, unspecified; D53.9 Nutritional anemia, unspecified; D75.89 Other specified diseases of blood and blood-forming organs; I10 Essential (primary) hypertension; K21.9 Gastro-esophageal reflux disease without esophagitis; K25.9 Gastric ulcer, unspecified as acute or chronic, without hemorrhage or perforation; Z82.0 Family history of epilepsy and other diseases of the nervous system; Z82.49 Family history of ischemic heart disease and other diseases of the circulatory system; Z68.38 Body mass index [BMI] 38.0-38.9, adult; Z90.710 Acquired absence of both cervix and uterus; Z87.11 Personal history of peptic ulcer disease; Z98.51 Tubal ligation status
CPT/HCPCS: 36415; 73560; 74022; 80048; 80053; 81001; 82274; 82607; 82728; 82746; 83540; 83550; 83605; 84484; 85025; 85027; 85045; 85610; 85730; 86850; 86900; 86901; 86920; 87086; 87641; 88305; 88342; 90686; 93005; 94250; 94760; 96372; 96374; 96375; C9113; J0171; J0690; J1756; J2405; J2704; J3010; J7030; J7050; P9016; 99285-25; J2001